=== PATIENT | female | born 1985 | race Hispanic/Latino ===

== ENCOUNTER 2017-08-12 06:02 | Emergency (ER) | payer SELFPAY ==
--- NOTE | 2017-08-12 07:46 | ER ---
Nurse's Notes [facility] Name: Ivana Daniel Age: 31 yrs Sex: Female : 1985 Arrival Date: 08/12/2017 Time: 06:04 Bed 14 Private MD: Diagnosis: Sprain of ankle-Left;Unspecified sprain of left foot Presentation: 08/12 06:19 Presenting complaint: Patient states: "I tripped over something at my apartment last bs1 night around 9pm and my left ankle twisted and It has been hurting me all night.". Transition of care: patient was not received from another setting of care. Onset of symptoms was August 11, 2017 at 21:00. Initial Sepsis Screen: Does the patient meet any 2 criteria? No. Patient's initial sepsis screen is negative. Does the patient have a suspected source of infection? No. Patient's initial sepsis screen is negative. Care prior to arrival: None. 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 - Social history:: Smoking status: Patient uses tobacco products, denies chronic smoking, but will smoke occasionally. Screenin:26 Abuse screen: Denies threats or abuse. Denies injuries from another. Nutritional bs1 screening: No deficits noted. Tuberculosis screening: No symptoms or risk factors identified. Fall Risk None identified. Assessment: 06:23 General: Appears in no apparent distress. uncomfortable, Behavior is calm, cooperative. bs1 Pain: Complains of pain in left ankle. Neuro: Level of Consciousness is awake, alert, obeys commands, Oriented to person, place, time, situation, Appropriate for age. Cardiovascular: Denies chest pain, shortness of breath, Heart tones S1 S2 present Capillary refill < 3 seconds Patient's skin is warm and dry. Respiratory: Airway is patent Trachea midline Respiratory effort is even, unlabored, Respiratory pattern is regular, symmetrical, Breath sounds are clear bilaterally. GI: No deficits noted. No signs and/or symptoms were reported involving the gastrointestinal system. : No deficits noted. No signs and/or symptoms were reported regarding the genitourinary system. EENT: No deficits noted. No signs and/or symptoms were reported regarding the EENT system. Derm: Skin is intact, Skin is pink, warm \\T\\ dry. Derm: Bruising that is dark purple, on left ankle. Musculoskeletal: Circulation, motion, and sensation intact. Capillary refill < 3 seconds, Range of motion: limited in left foot/ankle Swelling present in left foot/ankle Reports pain in left ankle. 07:08 General: Appears in no apparent distress. uncomfortable, Behavior is calm, cooperative, hj appropriate for age. Pain: Complains of pain in left ankle. Neuro: Level of Consciousness is awake, alert, obeys commands, Oriented to person, place, time, situation, Appropriate for age. Cardiovascular: Capillary refill < 3 seconds Patient's skin is warm and dry. Respiratory: Airway is patent Respiratory effort is even, unlabored, Respiratory pattern is regular, symmetrical. GI: No signs and/or symptoms were reported involving the gastrointestinal system. : No signs and/or symptoms were reported regarding the genitourinary system. EENT: No signs and/or symptoms were reported regarding the EENT system. Derm: No signs and/or symptoms reported regarding the dermatologic system. Musculoskeletal: Circulation, motion, and sensation intact. Capillary refill Range of motion: limited in left ankle Swelling Reports pain in L ankle. Vital Signs: 06:22 BP 109 / 80; Pulse 79; Resp 17; Temp 98.2(O); Pulse Ox 97% on R/A; Weight 95.25 kg; bs1 Height 5 ft. 4 in. (162.56 cm); Pain 9/10; 07:58 BP 102 / 65; Pulse 75; Resp 18; Pulse Ox 100% on R/A; hj 06:22 Body Mass Index 36.05 (95.25 kg, 162.56 cm) bs1 Richardson Coma Score: 06:27 Eye Response: spontaneous(4). Verbal Response: oriented(5). Motor Response: obeys bs1 commands(6). Total: 15. Trauma Score (Adult): 06:27 Eye Response: spontaneous(1); Verbal Response: oriented(1); Motor Response: obeys bs1 commands(2); Systolic BP: > 89 mm Hg(4); Respiratory Rate: 10 to 29 per min(4); Hortencia Score: 15; Trauma Score: 12 ED Course: 06:04 Patient arrived in ED. am2 06:19 Destiny Polanco, RN is Primary Nurse. bs1 06:20 Sae Funes PA is PHCP. cp 06:20 Sae Rangel MD is Attending Physician. cp 06:21 Triage completed. bs1 06:27 Arm band placed on placed. bs1 06:28 Patient has correct armband on for positive identification. Bed in low position. Call bs1 light in reach. Side rails up X 1. Pulse ox on. NIBP on. 07:07 X-ray completed. Portable x-ray completed in exam room. Patient tolerated procedure sw well. 07:09 XRAY Ankle LEFT 3 view In Process Unspecified. EDMS 07:09 XRAY Foot LEFT 3 View In Process Unspecified. EDMS 07:57 No provider procedures requiring assistance completed. Patient did not have IV access hj during this emergency room visit. Administered Medications: No medications were administered Outcome: 07:46 Discharge ordered by MD. cp 07:58 Discharged to home ambulatory, with crutches. hj 07:58 Condition: stable 07:58 Discharge instructions given to patient, Instructed on discharge instructions, follow up and referral plans. medication usage, Demonstrated understanding of instructions, follow-up care, medications, Prescriptions given X 1. 07:59 Patient left the ED. hj Signatures: Dispatcher [employer] EDNJ Lor Kuhn Kartik Banerjee RN RN Sae Méndez PA PA cp Moreno, Amanda am2 Destiny Polanco, RN RN bs1
--- NOTE | 2017-08-12 07:46 | EDPHYS ---
Physician Documentation [facility] Name: Ivana Daniel Age: 31 yrs Sex: Female : 1985 Arrival Date: 08/12/2017 Time: 06:04 Bed 14 Private MD: ED Physician Sae Rangel HPI: 08/12 06:30 This 31 yrs old Female presents to ER via Wheelchair with complaints of Fall cp Injury, Foot Injury. 06:30 The patient presents with an injury, pain, that is acute, swelling, tenderness. The cp complaints affect the left lateral ankle and lateral aspect of left foot. Context: The problem was sustained at home, resulted from the patient tripping, fall, the patient can partially bear weight, the patient is able to ambulate. 06:30 Onset: The symptoms/episode began/occurred last night. Associated signs and symptoms: cp Pertinent negatives calf tenderness, numbness, tingling, weakness. 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 - Social history:: Smoking status: Patient uses tobacco products, denies chronic smoking, but will smoke occasionally. ROS: 06:35 Constitutional: Negative for body aches, chills, fever, poor PO intake. cp 06:35 Eyes: Negative for injury, pain, redness, and discharge. cp 06:35 Neck: Negative for pain with movement, pain at rest, stiffness, bony tenderness. 06:35 Cardiovascular: Negative for chest pain. 06:35 Respiratory: Negative for cough, shortness of breath, wheezing. 06:35 Abdomen/GI: Negative for abdominal pain, nausea, vomiting, and diarrhea. 06:35 MS/extremity: Positive for pain, swelling, tenderness, of the lateral aspect of left foot and left lateral ankle, Negative for paresthesias. 06:35 Skin: Negative for cellulitis, rash. 06:35 All other systems are negative. Exam: 06:42 Constitutional: The patient appears in no acute distress, alert, awake, non-toxic, well cp developed, well nourished. 06:42 Head/Face: Normocephalic, atraumatic. cp 06:42 Eyes: Periorbital structures: appear normal, Conjunctiva: normal, no exudate, no injection, Lids and lashes: appear normal, bilaterally. 06:42 ENT: External ear(s): are unremarkable, Nose: is normal, Mouth: is normal, Posterior pharynx: is normal, airway is patent. 06:42 Neck: ROM/movement: is normal, is supple, without pain, no range of motions limitations, no nuchal rigidity. 06:42 Chest/axilla: Inspection: normal. 06:42 Cardiovascular: Rate: normal. 06:42 Respiratory: the patient does not display signs of respiratory distress, Respirations: normal, no use of accessory muscles, no retractions, no splinting, no tachypnea. 06:42 Abdomen/GI: Exam negative for discomfort, distension, guarding, Inspection: abdomen appears normal. 06:42 Back: pain, is absent, ROM is normal. 06:42 Musculoskeletal/extremity: Extremities: grossly normal except: noted in the lateral aspect of left foot and left lateral ankle: pain, swelling, tenderness, There is no evidence of deformity, Perfusion: the extremity is normally perfused throughout, Sensation intact. Achilles tendon palpated and intact and no pain palpated at proximal fibula. 06:42 Skin: cellulitis, is not appreciated, no rash present. Vital Signs: 06:22 BP 109 / 80; Pulse 79; Resp 17; Temp 98.2(O); Pulse Ox 97% on R/A; Weight 95.25 kg; bs1 Height 5 ft. 4 in. (162.56 cm); Pain 9/10; 07:58 BP 102 / 65; Pulse 75; Resp 18; Pulse Ox 100% on R/A; hj 06:22 Body Mass Index 36.05 (95.25 kg, 162.56 cm) bs1 Hortencia Coma Score: 06:27 Eye Response: spontaneous(4). Verbal Response: oriented(5). Motor Response: obeys bs1 commands(6). Total: 15. Trauma Score (Adult): 06:27 Eye Response: spontaneous(1); Verbal Response: oriented(1); Motor Response: obeys bs1 commands(2); Systolic BP: > 89 mm Hg(4); Respiratory Rate: 10 to 29 per min(4); Fowler Score: 15; Trauma Score: 12 Procedures: 07:55 Splinting: Splint applied to left ankle using Air Cast, applied by nurse. Examined by cp me, post splint application: neurovascular intact, Patient tolerated well. 07:55 Crutch training provided to patient and/or family. Return demonstration given. cp MDM: 06:20 Patient medically screened. cp 07:00 Differential diagnosis: dislocation, closed fracture, sprain. Counseling: I had a cp detailed discussion with the patient and/or guardian regarding: the historical points, exam findings, and any diagnostic results supporting the discharge/admit diagnosis, radiology results, to return to the emergency department if symptoms worsen or persist or if there are any questions or concerns that arise at home. Response to treatment: the patient's symptoms have mildly improved after treatment, and as a result, I will discharge patient. 07:45 Data reviewed: vital signs, nurses notes, radiologic studies, plain films, and as a cp result, I will discharge patient. 07:45 Test interpretation: by ED physician or midlevel provider: plain radiologic studies. 08/12 06:24 Order name: XRAY Ankle LEFT 3 view cp 08/12 06:24 Order name: XRAY Foot LEFT 3 View cp 08/12 07:43 Order name: Crutches; Complete Time: 07:57 cp 08/12 07:43 Order name: Aircast Ankle Splint; Complete Time: 07:57 cp Administered Medications: No medications were administered Disposition: 08/13 06:54 Co-signature as Attending Physician, Sae Rangel MD I agree with the assessment and austen plan of care. Disposition: 08/12/17 07:46 Discharged to Home. Impression: Sprain of ankle - Left, Unspecified sprain of left foot. - Condition is Stable. - Discharge Instructions: Ankle Sprain, Foot Sprain. - Prescriptions for Ibuprofen 800 mg Oral Tablet - take 1 tablet by ORAL route every 8 hours As needed take with food; 30 tablet. - Work release form, Medication Reconciliation Form, Thank You Letter, Antibiotic Education, Prescription Opioid Use form. - Follow up: Private Physician; When: 5 - 6 days; Reason: Recheck today's complaints. - Problem is new. - Symptoms have improved. Signatures: Dispatcher [employer] Sae Wing MD MD cha Joaquin, Henry RN RN hj Sae Funes PA PA cp Destiny Polanco RN RN bs1 Corrections: (The following items were deleted from the chart) 08/12 07:59 07:46 08/12/2017 07:46 Discharged to Home. Impression: Sprain of ankle - Left; hj Unspecified sprain of left foot. Condition is Stable. Forms are Medication Reconciliation Form, Thank You Letter, Antibiotic Education, Prescription Opioid Use. Follow up: Private Physician; When: 5 - 6 days; Reason: Recheck today's complaints. Problem is new. Symptoms have improved. cp
[2017-08-12 08:04] VITALS: TEMP 98.2
[2017-08-12 08:05] VITALS: BP 102/65; O2SAT 100
--- NOTE | 2017-08-12 09:14 | RAD REPORT ---
EXAM DESCRIPTION: RAD - Ankle Left 3 View - 08/12/2017 7:13 am CLINICAL HISTORY: Trauma left ankle and foot pain COMPARISON: None. FINDINGS: Left ankle and left foot, multiple projections. No acute fracture or dislocation is seen. Mild soft tissue swelling is evident.
--- NOTE | 2017-08-12 09:47 | RAD REPORT ---
EXAM DESCRIPTION: RAD - Foot Left 3 View - 08/12/2017 7:10 am CLINICAL HISTORY: Trauma left ankle and foot pain COMPARISON: None. FINDINGS: Left ankle and left foot, multiple projections. No acute fracture or dislocation is seen. Mild soft tissue swelling is evident.
== END 2017-08-12 07:59 | disposition home or self-care (01) ==
LOC: ER 06:02
DX: S93.402A Sprain of unspecified ligament of left ankle, initial encounter (principal); S93.602A Unspecified sprain of left foot, initial encounter; W01.0XXA Fall on same level from slipping, tripping and stumbling without subsequent striking against object, initial encounter; Y93.9 Activity, unspecified; Y92.009 Unspecified place in unspecified non-institutional (private) residence as the place of occurrence of the external cause; Z72.0 Tobacco use
CPT/HCPCS: 99283

== ENCOUNTER 2019-07-24 09:57 | Emergency (ER) | payer OTHER, SELFPAY ==
[2019-07-24 11:04] LABS: Urine Blood TRACE (NEG); Urine Glucose NEGATIVE (NEG); Urine Protein TRACE (NEG); Urine pH 6.5 (5.0-7.0)
[2019-07-24 11:40] LABS: Absolute Lymphocytes (CBC) 0.6 K/uL (0.7-4.9); Basophils % 0.3 % (0-1.3); Hematocrit 32.5 % (36.0-45.0); Lymphocytes % 19.8 % (15.3-44.8); MPV 8.5 fL (7.6-11.3); RBC Red Blood Cell Count 4.13 M/uL (3.86-4.86)
[2019-07-24] MEDS ORDERED: NA CHLORIDE 0.9% 1,000 ML ONE (11:49)
[2019-07-24 12:02] LABS: Blood Morphology Comment NOT SEEN (NOT SEEN); Platelet Estimate ADEQ; Urine White Blood Cell Casts OK
[2019-07-24 12:15] LABS: BUN Blood Urea Nitrogen 7 mg/dL (7-18); Bicarbonate 24 mmol/L (21-32); Glucose Level 96 mg/dL (74-106); HCG, Quantitative 57377 mIU/mL (1-3); Potassium 3.5 mmol/L (3.5-5.1); Sodium Level 139 mmol/L (136-145)
--- NOTE | 2019-07-24 13:29 | RAD REPORT ---
EXAM DESCRIPTION: US - Transvaginal OB - 07/24/2019 12:43 pm CLINICAL HISTORY: ABD CRAMPING, COMPARISON: OBSTETRICAL COMPLETE dated 04/16/2012 FINDINGS: A single gestational sac is seen within the uterus. The shape of the sac is within normal limits for gestational age. Within the sac is a single pole with crown-rump length of 2.5 cm, c orrelating to estimated gestational age of 9 weeks 0 days. Estimated date of delivery is 02/26/2020. Heart rate is 165 BPM. The placenta is not yet developed due to early gestational age. The maternal adnexa and ovaries are within normal limits. Normal Doppler blood flow was demonstrated to both ovaries. IMPRESSION: Single live early intrauterine gestation with estimated gestational age of 9 weeks 0 day s gestational age, MAREK 02/26/2020. No unusual or unexpected finding.
--- NOTE | 2019-07-24 13:41 | ER ---
Nurse's Notes [facility] Name: Ivana Daniel Age: 33 yrs Sex: Female : 1985 Arrival Date: 07/24/2019 Time: 10:00 Bed 18 Private MD: Diagnosis: state;Upper abdominal pain, unspecified Presentation: 07/23 10:19 Chief complaint: Patient states: LLQ pain that began yesterday afternoon. Pt also aa5 reports positive test approximately 3 weeks ago and reports nausea and vomiting on and off since then. Pt denies vaginal bleeding. Pt also reports fever up to 100.0 F and congestion. Coronavirus screen: Surgical mask placed on patient. Patient moved to private room, placed in contact and droplet isolation with eye protection until further assessment. Patient denies a cough. Patient reports shortness of breath or difficulty breathing. Patient reports a measured and/or subjective temperature greater than 100.4F. Patient denies travel on a cruise ship or to a country the [facility] currently lists as an affected area. Patient denies contact with known and/or suspected case of COVID-19. Ebola Screen: Patient negative for fever greater than or equal to 101.5 degrees Fahrenheit, and additional compatible Ebola Virus Disease symptoms. Risk Assessment: Do you want to hurt yourself or someone else? Patient reports no desire to harm self or others. Onset of symptoms was July 2019. 10:19 Method Of Arrival: Ambulatory aa5 10:19 Acuity: SREEKANTH 3 aa5 10:27 Initial Sepsis Screen: Does the patient meet any 2 criteria? No. Patient's initial aa5 sepsis screen is negative. Does the patient have a suspected source of infection? No. Patient's initial sepsis screen is negative. 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 - Social history:: Smoking status: Patient denies any tobacco usage or history of. Screenin:48 Abuse screen: Denies threats or abuse. Nutritional screening: No deficits noted. rb1 Tuberculosis screening: No symptoms or risk factors identified. Fall Risk None identified. Assessment: 11:48 General: Appears in no apparent distress. comfortable, Behavior is calm, cooperative, rb1 Reports fever for. Pain: Complains of pain in left upper quadrant and left lower quadrant Pain currently is 6 out of 10 on a pain scale. Neuro: Level of Consciousness is awake, alert, obeys commands, Oriented to person, place, time, situation. Cardiovascular: Capillary refill < 3 seconds is brisk in bilateral fingers. Respiratory: Airway is patent Respiratory effort is even, unlabored, Respiratory pattern is regular, symmetrical. GI: Reports nausea, vomiting, since she got . : No signs and/or symptoms were reported regarding the genitourinary system. Derm: Skin is pink, warm \T\ dry. 12:34 Reassessment: Patient appears in no apparent distress at this time. No changes from rb1 previously documented assessment. 13:30 Reassessment: Patient appears in no apparent distress at this time. Patient and/or rb1 family updated on plan of care and expected duration. Pain level reassessed. Patient is alert, oriented x 3, equal unlabored respirations, skin warm/dry/pink. 13:59 Reassessment: [facility] # [id number]. aa5 Vital Signs: 10:25 BP 102 / 64; Pulse 90; Resp 16 S; Temp 98.3(O); Pulse Ox 98% on R/A; aa5 11:48 BP 103 / 59; Pulse 83; Resp 17; Pulse Ox 98% on R/A; Pain 6/10; rb1 12:25 BP 107 / 50; Pulse 79; Resp 17; Pulse Ox 99% ; Pain 6/10; rb1 13:25 BP 102 / 53; Pulse 81; Resp 16; Pulse Ox 100% on R/A; rb1 ED Course: 10:00 Patient arrived in ED. ag5 10:02 Deann Zavala FNP-C [facility]. snw 10:02 Tim Torres MD is Attending Physician. snw 10:04 Arm band placed on Patient placed in an exam room, on a stretcher. aa5 10:21 Triage completed. aa5 11:18 Flu and/or RSV swab sent to lab. Strep swab sent to lab. COVID-19 swab sent to lab. aa5 11:20 Initial lab(s) drawn, by me, sent to lab. Inserted saline lock: 20 gauge in right aa5 antecubital area, using aseptic technique. Blood collected. 11:48 Patient has correct armband on for positive identification. Bed in low position. Call rb1 light in reach. Side rails up X 1. Pulse ox on. NIBP on. 12:10 Josseline Murillo, RN is Primary Nurse. rb1 12:34 Ultrasound completed. Patient tolerated well. sg3 12:35 US Transvaginal Ob In Process Unspecified. EDMS 13:17 Repeat lab(s) drawn. by me, sent to lab. jp3 14:02 No provider procedures requiring assistance completed. IV discontinued, intact, rb1 bleeding controlled, No redness/swelling at site. Pressure dressing applied. Administered Medications: 11:45 Drug: NS 0.9% 1000 ml Route: IV; Rate: 125 ml/hr; Site: right antecubital; rb1 Outcome: 13:41 Discharge ordered by MD. snw 14:02 Patient left the ED. rb1 14:02 Discharged to home ambulatory. rb1 14:02 Condition: stable 14:02 Discharge instructions given to patient, Instructed on discharge instructions, follow up and referral plans. medication usage, Demonstrated understanding of instructions, follow-up care, medications, Prescriptions given X 1. Addendum: 07/26/2019 18:35 Addendum: Other Attempted to call pt regarding negative COVID swab results, no answer, h b no voicemail set up. Signatures: Dispatcher [employer] EDAL Deann Zavala, CHA[employer]MAN [employer]-C [employer]MAN [employer] Patricia Unger RN RN aa5 Josseline Murillo, JENNIFER RODRIGUEZ [facility] Monique Rg RN RN Yessy Lee sg3 Dontae Coates jp3 Blaire Phillips ag5
--- NOTE | 2019-07-24 13:41 | EDPHYS ---
Physician Documentation [facility] Name: Ivana Daniel Age: 33 yrs Sex: Female : 1985 Arrival Date: 07/24/2019 Time: 10:00 Bed 18 Private MD: ED Physician Tim Torres HPI: 07/23 10:33 This 33 yrs old Female presents to ER via Ambulatory with complaints of snw Abdominal Pain. 10:33 The patient presents with abdominal pain in the left lower quadrant. Onset: The snw symptoms/episode began/occurred gradually, 3 day(s) ago, and became persistent. The symptoms do not radiate. Associated signs and symptoms: Pertinent positives: nausea and vomiting, fever, , body aches, chills. Severity of pain: At its worst the pain was mild. The patient has not experienced similar symptoms in the past. The patient has not recently seen a physician. initial appt with OB this coming week. . Pt states LMP in May.. 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 - Social history:: Smoking status: Patient denies any tobacco usage or history of. ROS: 10:33 Eyes: Negative for injury, pain, redness, and discharge, ENT: Negative for injury, snw pain, and discharge, Neck: Negative for injury, pain, and swelling, Cardiovascular: Negative for chest pain, palpitations, and edema, Respiratory: Negative for shortness of breath, cough, wheezing, and pleuritic chest pain. 10:33 Back: Negative for injury and pain, : Negative for injury, bleeding, discharge, and swelling, MS/Extremity: Negative for injury and deformity, Skin: Negative for injury, rash, and discoloration, Neuro: Negative for headache, weakness, numbness, tingling, and seizure, Psych: Negative for depression, anxiety, suicide ideation, homicidal ideation, and hallucinations. 10:33 Constitutional: Positive for body aches, chills, fever, poor PO intake. 10:33 Abdomen/GI: Positive for abdominal pain, nausea and vomiting. Exam: 10:33 Constitutional: This is a well developed, well nourished patient who is awake, alert, snw and in no acute distress. Head/Face: Normocephalic, atraumatic. Eyes: Pupils equal round and reactive to light, extra-ocular motions intact. Lids and lashes normal. Conjunctiva and sclera are non-icteric and not injected. Cornea within normal limits. Periorbital areas with no swelling, redness, or edema. ENT: Nares patent. No nasal discharge, no septal abnormalities noted. Tympanic membranes are normal and external auditory canals are clear. Oropharynx with no redness, swelling, or masses, exudates, or evidence of obstruction, uvula midline. Mucous membranes moist. Neck: Trachea midline, no thyromegaly or masses palpated, and no cervical lymphadenopathy. Supple, full range of motion without nuchal rigidity, or vertebral point tenderness. No Meningismus. Chest/axilla: Normal chest wall appearance and motion. Nontender with no deformity. No lesions are appreciated. Cardiovascular: Regular rate and rhythm with a normal S1 and S2. No gallops, murmurs, or rubs. Normal PMI, no JVD. No pulse deficits. 10:33 Back: No spinal tenderness. No costovertebral tenderness. Full range of motion. Skin: Warm, dry with normal turgor. Normal color with no rashes, no lesions, and no evidence of cellulitis. MS/ Extremity: Pulses equal, no cyanosis. Neurovascular intact. Full, normal range of motion. Neuro: Awake and alert, GCS 15, oriented to person, place, time, and situation. Cranial nerves II-XII grossly intact. Motor strength 5/5 in all extremities. Sensory grossly intact. Cerebellar exam normal. Normal gait. Psych: Awake, alert, with orientation to person, place and time. Behavior, mood, and affect are within normal limits. 10:33 Respiratory: the patient does not display signs of respiratory distress, Respirations: labored breathing, that is mild, Breath sounds: are clear throughout. 10:33 Abdomen/GI: Inspection: obese Bowel sounds: normal, Palpation: abdomen is soft and non-tender, in all quadrants. Vital Signs: 10:25 BP 102 / 64; Pulse 90; Resp 16 S; Temp 98.3(O); Pulse Ox 98% on R/A; aa5 11:48 BP 103 / 59; Pulse 83; Resp 17; Pulse Ox 98% on R/A; Pain 6/10; rb1 12:25 BP 107 / 50; Pulse 79; Resp 17; Pulse Ox 99% ; Pain 6/10; rb1 13:25 BP 102 / 53; Pulse 81; Resp 16; Pulse Ox 100% on R/A; rb1 MDM: 10:19 Patient medically screened. snw 13:42 Data reviewed: vital signs, nurses notes. Data interpreted: Pulse oximetry: on room air snw is 99 %. Interpretation: normal. Counseling: I had a detailed discussion with the patient and/or guardian regarding: the historical points, exam findings, and any diagnostic results supporting the discharge/admit diagnosis, lab results, radiology results, the need for outpatient follow up, to return to the emergency department if symptoms worsen or persist or if there are any questions or concerns that arise at home. Special discussion: Based on the history and exam findings, there is no indication for further emergent testing or inpatient evaluation. I discussed with the patient/guardian the need to see the OB Gyne specialist for further evaluation of the symptoms. I discussed with the patient/guardian the need to see the primary care provider for further evaluation of the symptoms. 07/23 10:17 Order name: Quantitative Hcg; Complete Time: 12:40 snw 07/23 10:17 Order name: Abo/rh Typing; Complete Time: 13:26 snw 07/23 10:17 Order name: Basic Metabolic Panel; Complete Time: 12:40 snw 07/23 10:17 Order name: CBC with Diff; Complete Time: 12:40 snw 07/23 10:19 Order name: COVID-19 snw 07/23 10:19 Order name: Flu; Complete Time: 12:40 snw 07/23 10:17 Order name: Urine Test (obtain specimen); Complete Time: 10:36 snw 07/23 10:19 Order name: Strep; Complete Time: 12:40 snw 07/23 10:23 Order name: Urine Dipstick--Ancillary (enter results); Complete Time: 11:45 eb 07/23 10:23 Order name: Urine --Ancillary (enter results); Complete Time: 11:45 eb 07/23 10:40 Order name: US Transvaginal Ob; Complete Time: 13:39 snw 07/23 11:59 Order name: Throat Culture EDWY 07/23 12:02 Order name: CBC Smear Scan; Complete Time: 12:40 EDWY 07/23 10:17 Order name: IV Saline Lock; Complete Time: 11:28 snw 07/23 10:17 Order name: Labs collected and sent; Complete Time: 11:28 snw 07/23 10:17 Order name: NPO; Complete Time: 11:28 snw 07/23 10:17 Order name: Urine Dipstick-Ancillary (obtain specimen); Complete Time: 10:36 snw 07/23 10:19 Order name: Document PUI#; Complete Time: 11:28 snw 07/23 10:19 Order name: Droplet/Contact Precautions; Complete Time: 11:28 snw 07/23 10:19 Order name: Labs collected and sent; Complete Time: 11:28 snw 07/23 10:19 Order name: Notify Health Dept [phone]/ ; Complete Time: 11:28 snw 07/23 10:19 Order name: O2 Per Protocol; Complete Time: 11:28 snw Administered Medications: 11:45 Drug: NS 0.9% 1000 ml Route: IV; Rate: 125 ml/hr; Site: right antecubital; rb1 Disposition: 14:15 Co-signature as Attending Physician, Tim Torres MD. rn Disposition: 07/24/19 13:41 Discharged to Home. Impression: state, Upper abdominal pain, unspecified. - Condition is Stable. - Discharge Instructions: Abdominal Pain During , Iron Deficiency Anemia, Adult. - Prescriptions for Vitamin 27- 0.8 mg Oral Tablet - take 1 tablet by ORAL route once daily; 60 tablet. - Medication Reconciliation Form, Thank You Letter, Antibiotic Education, Prescription Opioid Use, Work release form form. - Follow up: Emergency Department; When: As needed; Reason: Worsening of condition. Follow up: Private Physician; When: 2 - 3 days; Reason: If symptoms return, Recheck today's complaints, Continuance of care. Signatures: Dispatcher [employer] [facility] Deann Zavala, COURSEWARE DEVELOPER-C COURSEWARE DEVELOPER-Csnw Tim Torres MD MD rn Calderon, Audri, RN RN aa5 Josseline Murillo, RN RN rb1 Corrections: (The following items were deleted from the chart) 14:02 13:41 07/24/2019 13:41 Discharged to Home. Impression: state; Upper abdominal rb1 pain, unspecified. Condition is Stable. Forms are Medication Reconciliation Form, Thank You Letter, Antibiotic Education, Prescription Opioid Use. Follow up: Emergency Department; When: As needed; Reason: Worsening of condition. Follow up: Private Physician; When: 2 - 3 days; Reason: If symptoms return, Recheck today's complaints, Continuance of care. snw
[2019-07-24 14:28] VITALS: TEMP 98.3
[2019-07-24 14:31] VITALS: BP 107/50; O2SAT 99
== END 2019-07-24 14:02 | disposition home or self-care (01) ==
LOC: ER 09:57
DX: O26.891 Other specified pregnancy related conditions, first trimester (principal); Z3A.09 9 weeks gestation of pregnancy; Z03.818 Encounter for observation for suspected exposure to other biological agents ruled out
CPT/HCPCS: 87070; 85025; 80048; 36415; 86900; 81025; 86901; 87081; 84702; 81003; 87804 ×2; 76817; 99284; U0001; J7030

== ENCOUNTER 2021-11-28 06:39 | Emergency (ER) | payer OTHER ==
--- OUTSIDE RECORDS SUMMARY | 2021-11-28 06:44 | XMS REPORT | Continuity of Care Document ---
:1985 Author Organization [facility] t Address [address] [place] [address] Care Team Providers Name Role Phone Devora Jara Primary Care Physician [phone] Kristin Yeboah Attending Clinician EbraAren Rao Attending Clinician AREN HARPER Attending Clinician Unavailable Amber Luevano RN Attending Clinician Unavailable KRISTIN VALLADARES Attending Clinician Unavailable Doctor Unassigned, [place] Attending Clinician Unavailable HORACE MORALES Attending Clinician Unavailable Only, Adc Pob2 Test Attending Clinician Unavailable Horace Morales DO Attending Clinician Nahomy Braun RN Attending Clinician Unavailable Only, Ang Db Test Attending Clinician Unavailable UNKNOWN, ATTENDING Attending Clinician Unavailable Ivana Ahumada Attending Clinician Provider, [facility] Attending Clinician Unavailable IVANA GARRIDO Attending Clinician Unavailable DEVORA PERRY Attending Clinician Unavailable Devora Jara Attending Clinician [phone] Eula Johnson MD, [place] Attending Clinician [phone], [facility] Room Attending Clinician Unavailable Romain Barnhart MD Attending Clinician BARRON GUILLEN Attending Clinician Unavailable 1, [facility] Room Attending Clinician Unavailable Andrew RODRIGES, Lor Gomez Attending Clinician ARIANA MAYER [facility] Attending Clinician Unavailable Eula Johnson MD, [place] Admitting Clinician [phone] Payers Payer Name Policy Type Policy Number Effective Date Expiration Date Jos bailey [facility] [id number] 2019 CHOICE MEDICAID 00:00:00 Problems Condition Condition Condition Status Onset Resolution Last Treating Co mments Source Name Details Category Date Date Treatment Clinician Date Other Other Disease Active Univers general general 1-27 [place] of counseling [place] and advice and advice 00 Me dical for for Branch contracept contracept alan alan management management Routine Routine Disease Active 2019-04 Univers 2-07 [place] [facility] Anemia, Anemia, Disease Active 2019-04 Univers 1-16 it y of 00:00: [place] 00 [facility] First First Disease Active 2019-04 Univers degree degree 1-15 ity of laceration laceration 00:00[place] of of 00 Medical perineum perineum Branch during during delivery, delivery, Disease Active 2019-04 Univers (normal (normal 1-15 ity of spontaneou spontaneou 00:00[place] s vaginal s vaginal 00 [facility] delivery) delivery) Bran ch Single Single Disease Active 2019-04 Univers live live 1-15 ity of 00:00: [place] 00 [facility] Obesity Obesity Disease Active 2019-04 Univers (BMI (BMI 1-15 ity of 30-39.9) 30-39.9) 00:00: [place] 00 [facility] Branch 39 weeks 39 weeks Disease Active 2019-04 Unive rs gestation gestation 1-14 ity of of of 00:00: [place] 00 [facility] Indication Indication Disease Active 2019-04 U nivers for care for care 1-14 ity of or or 00:00: [place] interventi interventi 00 Me dical on in on in Branch labor or labor or delivery-I delivery-I OL OL Pyelectasi Pyelectasi Disease Active Overview : Univers s s 12-09 Not ity of 00:00: mentioned [place] 00 on f/u Medical USG Branch Rubella Rubella Disease Active Univers non-immune non-immune 12-05 it y of status, status, 00:00: [place] antepartum antepartum 00 Me dical Branch Anemia of Anemia of Disease Active Uni vers mother in mother in 12-05 ity of , , [place] antepartum antepartum 00 Me dical Branch Tobacco Tobacco Disease Active Overview: Univ ers use in use in 12-02 Formattin ity of 00:00: g of this [place] 00 note Medical might be Branch different from the original. Reports quit Supervisio Supervisio Disease Active Overview : Univers n of n of 12-02 See ity of high-risk high-risk 00:00: scanned [place] as 00 records Med ical with with Branch insufficie insufficie nt nt care care AMA AMA Disease Active Univers (advanced (advanced 12-02 ity of maternal maternal 00:00: [place] age) age) 00 Medical multigravi multigravi Br anch da 35+ da 35+ Multiparit Multiparit Disease Active 2019- U nivers y y 12-02 ity of 00:00: [place] 00 Medical Branch Obesity in Obesity in Disease Active 2019-0 U nivers 12-02 ity of 00:00: [place] 00 Medical Branch Right Right Disease Active 2014-04 Univers ureteral ureteral 1-24 ity of stone stone 00:00: [place] 00 Medical Branch Chlamydia Chlamydia Disease Active Uni vers trachomati trachomati 4-17 it y of s s 00:00: [place] infection infection 00 Medi jason of lower of lower Branch genitourin genitourin daniel sites daniel sites Allergies, Adverse Reactions, Alerts Allergy Allergy Status Severity Reaction(s) Onset Inactive Treating Comm ents Source Name Type Date Date Clinician NO KNOWN Drug Active Univers ALLERGIE Class ity of S [place] [facility] [place] Social History Social Habit Start Date Stop Date Quantity Comments Source ASSERTION 2019-05-31 University of 00:00:00 [place] [facility] History SDOH University o f Alcohol [place] [facility] Frequency Branch History SDOH University o f Alcohol Std [place] [facility] Drinks Branch History [facility] University o f Alcohol Binge [place] Medic al Branch Exposure to 2021-09-11 2021-09-21 Not sure [facility] SARS-CoV-2 00:00:00 [facility]:29:[facility] [place] Alcohol intake 2021-09-21 2021-09-21 Current drinker of Un iversity of 00:00:00 00:00:00 alcohol (finding) [facility] Tobacco use and 2019-12-03 2019-12-03 Never used Universit y of exposure 00:00:00 00:00:00 [facility] History of 2019-03-07 Cigarette [facility] tobacco use 00:00:00 [facility] Alcohol Comment 2013-07-21 2013-07-21 Occasionally Univers ity of 00:00:00 00:00:00 [facility] Tobacco Comment 2013-07-21 2013-07-21 Pt reports smoking 1 University of 00:00:00 00:00:00 x per month [facility] Sex [birth year] At [birth year] Universit y of 00:00:00 00:00:00 [facility] Smoking Status Start Date Stop Date Source Former smoker 2019-12-03 00:00:00 2019-12-03 00:00:00 Universi ty of [facility] Current some day 2015-03-01 00:00:00 [facility] smoker [facility] Medications Ordered Filled Start Stop Current Ordering Indication Dosage Frequency Signature Comments Components Source Medication Medication Date Date Medication? Clinician (SIG) Name Name methylPREDN Yes [id number] Take by Univers ISolone 09-21 mouth ity of (MEDROL, 00:00: SEE-INSTRU [place] as DOT,) 4 mg 00 CTIONS. Medica l tablets follow Branch package directions ketoconazol Yes [id number] Apply to Univers e 2 % cream 09-21 area(s) 2 ity of 00:00: (two) [place] 00 times Medical daily. Branch codeine-gua 2021- Yes [id number] 5mL Take 5 mL Univers ifenesin 09-21 by mouth ity of 10-100 mg/5 00:00: 04:59 every 6 [place] mL oral 00 :00 (six) Medical solution hours as Branch needed for Cough for up to 7 days. Indication s: acute pain codeine-gua 2021- Yes [id number] 5mL Take 5 mL Univers ifenesin 09-1216 by mouth ity of 10-100 mg/5 00:00: 04:59 every 6 [place] mL oral 00 :00 (six) Medical solution hours as Branch needed for Cough for up to 7 days. Indication s: acute pain codeine-gua 2021- Yes [id number] 5mL Take 5 mL Univers ifenesin 608 -16 by mouth ity of 10-100 mg/5 00:00: 04:59 every 6 [place] mL oral 00 :00 (six) Medical solution hours as Branch needed for Cough for up to 7 days. Indication s: acute pain naproxen 2020- No [id number] 500mg Take 1 Univers 500 mg 09-19 tablet by ity of tablet 00:00: 04:59 mouth 2 [place] 00 :00 (two) Medical times Branch daily as needed for Pain (scale 4-6) for up to 30 days. methylPREDN 2020- No [id number] Take by Univers ISolone 4 09-19 mouth ity of mg tablets 00:00: 04:59 SEE-INSTRU [place] 00 :00 CTIONS for Medical 6 days. Branch follow package directions levonorgest 2020- No [id number] 1{devi Univers reL 05-03 e} ity of (LILETTA) 19:15: 18:01 [place] IUD 1 00 :00 Partner Manager Branch levonorgest 2020- No [id number] 1{devic 1 Device, Univers reL 05-03 e} Intrauteri ity of (LILLUGOFF) 19:15: 18:01 ne, ONCE, [place] IUD 1 00 :00 1 dose, Partner Manager Wed Branch 05/03/20 at 1315, Routine levonorgest 2020- No [id number] 1{devi Univers reL 05-03 e} ity of (LILETTA) 19:15: 18:01 [place] IUD 1 00 :00 Partner Manager Branch levonorgest 2020- No [id number] 1{devic 1 Device, Univers reL 05-03 e} Intrauteri ity of (LILLUGOFF) 19:15: 18:01 ne, ONCE, [place] IUD 1 00 :00 1 dose, Partner Manager Wed Branch 05/03/20 at 1315, Routine ibuprofen 2019-04 Yes [id number] 600mg Take 1 U nivers 600 mg 1-16 tablet by ity of tablet 00:00: mouth [place] 00 every 6 Medical (six) Branch hours as needed (Pain). Take with food or milk. ibuprofen 2019-04 Yes [id number] 600mg Take 1 U nivers 600 mg 1-16 tablet by ity of tablet 00:00: mouth [place] 00 every 6 Medical (six) Branch hours as needed (Pain). Take with food or milk. ibuprofen 2019-04 Yes [id number] 600mg Take 1 U nivers 600 mg 1-16 tablet by ity of tablet 00:00: mouth [place] 00 every 6 Medical (six) Branch hours as needed (Pain). Take with food or milk. ibuprofen 2019-04 Yes [id number] 600mg Take 1 U nivers 600 mg 1-16 tablet by ity of tablet 00:00: mouth [place] 00 every 6 Medical (six) Branch hours as needed (Pain). Take with food or milk. ibuprofen 2019-04 Yes [id number] 600mg Take 1 U nivers 600 mg 1-16 tablet by ity of tablet 00:00: mouth [place] 00 every 6 Medical (six) Branch hours as needed (Pain). Take with food or milk. ibuprofen 2019-04 Yes [id number] 600mg Take 1 U nivers 600 mg 1-16 tablet by ity of tablet 00:00: mouth [place] 00 every 6 Medical (six) Branch hours as needed (Pain). Take with food or milk. ibuprofen 2019-04 Yes [id number] 600mg Take 1 U nivers 600 mg 1-16 tablet by ity of tablet 00:00: mouth [place] 00 every 6 Medical (six) Branch hours as needed (Pain). Take with food or milk. ibuprofen 2019-04 Yes [id number] 600mg Take 1 U nivers 600 mg 1-16 tablet by ity of tablet 00:00: mouth [place] 00 every 6 Medical (six) Branch hours as needed (Pain). Take with food or milk. ibuprofen 2019-04 Yes [id number] 600mg Take 1 U nivers 600 mg 1-16 tablet by ity of tablet 00:00: mouth [place] 00 every 6 Medical (six) Branch hours as needed (Pain). Take with food or milk. ibuprofen 2019-04 Yes [id number] 600mg Take 1 U nivers 600 mg 1-16 tablet by ity of tablet 00:00: mouth [place] 00 every 6 Medical (six) Branch hours as needed (Pain). Take with food or milk. ibuprofen 2019-04 Yes [id number] 600mg Take 1 U nivers 600 mg 1-16 tablet by ity of tablet 00:00: mouth [place] 00 every 6 Medical (six) Branch hours as needed (Pain). Take with food or milk. ibuprofen 2019-04 Yes [id number] 600mg Take 1 U nivers 600 mg 1-16 tablet by ity of tablet 00:00: mouth [place] 00 every 6 Medical (six) Branch hours as needed (Pain). Take with food or milk. ibuprofen 2019-04 Yes [id number] 600mg Take 1 U nivers 600 mg 1-16 tablet by ity of tablet 00:00: mouth [place] 00 every 6 Medical (six) Branch hours as needed (Pain). Take with food or milk. ibuprofen 2019-04 Yes [id number] 600mg Take 1 U nivers 600 mg 1-16 tablet by ity of tablet 00:00: mouth [place] 00 every 6 Medical (six) Branch hours as needed (Pain). Take with food or milk. ibuprofen 2019-04 Yes [id number] 600mg Take 1 U nivers 600 mg 1-16 tablet by ity of tablet 00:00: mouth [place] 00 every 6 Medical (six) Branch hours as needed (Pain). Take with food or milk. ibuprofen 2019-04 Yes [id number] 600mg Take 1 U nivers 600 mg 1-16 tablet by ity of tablet 00:00: mouth [place] 00 every 6 Medical (six) Branch hours as needed (Pain). Take with food or milk. ibuprofen 2019-04 Yes [id number] 600mg Take 1 U nivers 600 mg 1-16 tablet by ity of tablet 00:00: mouth [place] 00 every 6 Medical (six) Branch hours as needed (Pain). Take with food or milk. rho(D) 2019-04 Yes 300ug 300 mcg, Univer s immune 1-15 Intramuscu ity of globulin 11:09: lar, ONCE, [place] as (RHOGAM) 23 For 1 Medical syringe 300 dose, Branch mcg Conditiona l, Routine simethicone 2019-04 Yes 160mg 160 mg, Un deepak (GAS RELIEF 1-15 Oral, ity of (SIMETHICON 11:09: PC+HSPRN, [place] E)) 21 Starting Medical chewable [place] Branch tablet 160 02/20/20 mg at 0509, Until Discontinu ed, Routine, Gas ibuprofen 2019-04 Yes 600mg 600 mg, Univ ers (IBU) 1-15 Oral, ity of tablet 600 11:09: Q6HPRN, [place] mg 20 Starting Medical [place] Branch 02/20/20 at 0509, Until Discontinu ed, Routine, Pain (scale 4-6) acetaminoph 2019-04 Yes 650mg 650 mg, Un deepak en 1-15 Oral, ity of (TYLENOL) 11:09: Q6HPRN, [place] tablet 650 20 Starting Medic al mg Sun Branch 02/20/20 at 0509, Until Discontinu ed, Routine, Pain (scale 1-3) diphenhydrA 2019-04 Yes 25mg 25 mg, Univ ers MINE 1-15 Oral, ity of (BENADRYL) 11:09: Q6HPRN, [place] tablet 25 20 Starting Medica l mg [place] Branch 02/20/20 at 0509, Until Discontinu ed, Routine, Sleep, Itching diphenhydrA 2019-04 Yes 25mg 25 mg, IV U nivers MINE-0.9 % 1-15 Piggyback, ity of sod.chlr 11:09: Administer [place] (BENADRYL) 20 over 30 Medica l 25 mg/50 mL Minutes, Bran ch piggyback Q6HPRN, 25 mg Starting 02/20/20 at 0509, Until Discontinu ed, Routine, Itching ondansetron 2019-04 Yes 4mg 4 mg, Slow Univers (ZOFRAN 1-15 IV Push, ity of (PF)) 11:09: Q8HPRN, [place] injection 4 20 Starting Medi jason mg [place] Branch 02/20/20 at 0509, Until Discontinu ed, Routine, Nausea and Vomiting (N/V) docusate 2019-04 Yes 240mg 240 mg, Unive rs calcium 1-15 Oral, ity of (SURFAK) 11:09: QDAILYPRN, [place] capsule 240 20 Starting Medi jason mg [facility] 02/20/20 at 0509, Until Discontinu ed, Routine, Constipati on magnesium 2019-04 Yes 30mL 30 mL, Univer s hydroxide 1-15 Oral, ity of (MILK OF 11:09: QDAILYPRN, [place] MAGNESIA) 20 Starting Medica l 400 mg/5 mL [place] Branch suspension 02/20/20 30 mL at 0509, Until Discontinu ed, Routine, Constipati on benzocaine- 2019-04 Yes Topical, Un deep[place] menthol 1-15 PRN, ity of (DERMOPLAST 11:09: Starting [place] ) 20-0.5 % 20 [place] Medical topical 02/20/20 Branch spray at 0509, Until Discontinu ed, Routine, Perineum discomfort LR 1000 mL 2019-04 2020- No at 125 Univ ers + oxytocin 1-15 11-15 mL/hr, IV ity of 20 units IV 07:30: 06:20 Infusion, [place] Solution 00 :00 ONCE, 1 Medical dose, [facility] 02/20/20 at 0130, Routine D5W-LR IV 2019-04- No 1000mL at 125 Uni vers infusion 1-14 11-15 mL/hr, IV ity o f 1,000 mL 16:30: 11:09 Infusion, [place] as 00 :24 CONTINUOUS Medical , Starting Branch 02/19/20 at 1030, Until 02/20/20 at 0509, Routine sodium 2019-04 2020- No 30mL 30 mL, Univers citrate-cit -14 11-15 Oral, ity of alis acid 16:14: 02:18 PRE-PROCED [place] (BICITRA) 34 :00 URE ONCE, Medic al 500-334 1 dose, Branch mg/5 mL Starting solution 30 Sat mL 02/19/20 at 1014, Until Discontinu ed, Routine, Surgery/Pr ocedure lactated 2019-04- No 500mL at 999 Unive rs ringers IV 1-14 11-15 mL/hr, 500 it y of infusion 16:14: 11:09 mL, IV [place] 500 mL 34 :24 Infusion, Medical PRN - SEE Branch INSTRUCTIO NS, Starting 02/19/20 at 1014, Until 02/20/20 at 0509, Routine ferrous 2020-0 Yes [id number] 325mg Take 1 Un deepak sulfate 325 8-31 tablet by ity of mg (65 mg 00:00: mouth 2 [place] iron) 00 (two) Medical tablet times Branch daily. ascorbic 2020-0 Yes [id number] 500mg Take 1 U nivers acid, 8-31 tablet by ity of vitamin C, 00:00: mouth 3 [place] 500 mg 00 (three) Medical tablet times Branch daily. ferrous 2020-0 Yes [id number] 325mg Take 1 Un deep[place] sulfate 325 8-31 tablet by ity of mg (65 mg 00:00: mouth 2 [place] iron) 00 (two) Medical tablet times Branch daily. ascorbic 2020-0 Yes [id number] 500mg Take 1 U nivers acid, 8-31 tablet by ity of vitamin C, 00:00: mouth 3 [place] 500 mg 00 (three) Medical tablet times Branch daily. ferrous 2020-0 Yes [id number] 325mg Take 1 Un deep[place] sulfate 325 8-31 tablet by ity of mg (65 mg 00:00: mouth 2 [place] iron) 00 (two) Medical tablet times Branch daily. ascorbic 2020-0 Yes [id number] 500mg Take 1 U nivers acid, 8-31 tablet by ity of vitamin C, 00:00: mouth 3 [place] 500 mg 00 (three) Medical tablet times Branch daily. ferrous 2020-0 Yes [id number] 325mg Take 1 Un deepak sulfate 325 8-31 tablet by ity of mg (65 mg 00:00: mouth 2 [place] iron) 00 (two) Medical tablet times Branch daily. ascorbic 2020-0 Yes [id number] 500mg Take 1 U nivers acid, 8-31 tablet by ity of vitamin C, 00:00: mouth 3 [place] 500 mg 00 (three) Medical tablet times Branch daily. ferrous 2020-0 Yes [id number] 325mg Take 1 Un deepak sulfate 325 8-31 tablet by ity of mg (65 mg 00:00: mouth 2 [place] iron) 00 (two) Medical tablet times Branch daily. ascorbic 2020-0 Yes [id number] 500mg Take 1 U nivers acid, 8-31 tablet by ity of vitamin C, 00:00: mouth 3 [place] 500 mg 00 (three) Medical tablet times Branch daily. ferrous 2020-0 Yes [id number] 325mg Take 1 Un deep[place] sulfate 325 8-31 tablet by ity of mg (65 mg 00:00: mouth 2 [place] iron) 00 (two) Medical tablet times Branch daily. ascorbic 2020-0 Yes [id number] 500mg Take 1 U nivers acid, 8-31 tablet by ity of vitamin C, 00:00: mouth 3 [place] 500 mg 00 (three) Medical tablet times Branch daily. ferrous 2020-0 Yes [id number] 325mg Take 1 Un deep[place] sulfate 325 8-31 tablet by ity of mg (65 mg 00:00: mouth 2 [place] iron) 00 (two) Medical tablet times Branch daily. ascorbic 2020-0 Yes [id number] 500mg Take 1 U nivers acid, 8-31 tablet by ity of vitamin C, 00:00: mouth 3 [place] 500 mg 00 (three) Medical tablet times Branch daily. ferrous 2020-0 Yes [id number] 325mg Take 1 Un deep[place] sulfate 325 8-31 tablet by ity of mg (65 mg 00:00: mouth 2 [place] iron) 00 (two) Medical tablet times Branch daily. ascorbic 2020-0 Yes [id number] 500mg Take 1 U nivers acid, 8-31 tablet by ity of vitamin C, 00:00: mouth 3 [place] 500 mg 00 (three) Medical tablet times Branch daily. ferrous 2020-0 Yes [id number] 325mg Take 1 Un deep[place] sulfate 325 8-31 tablet by ity of mg (65 mg 00:00: mouth 2 [place] iron) 00 (two) Medical tablet times Branch daily. ascorbic 2020-0 Yes [id number] 500mg Take 1 U nivers acid, 8-31 tablet by ity of vitamin C, 00:00: mouth 3 [place] 500 mg 00 (three) Medical tablet times Branch daily. ferrous 2020-0 Yes [id number] 325mg Take 1 Un deep[place] sulfate 325 8-31 tablet by ity of mg (65 mg 00:00: mouth 2 [place] iron) 00 (two) Medical tablet times Branch daily. ascorbic 2020-0 Yes [id number] 500mg Take 1 U nivers acid, 8-31 tablet by ity of vitamin C, 00:00: mouth 3 [place] 500 mg 00 (three) Medical tablet times Branch daily. ferrous 2020-0 Yes [id number] 325mg Take 1 Un deep[place] sulfate 325 8-31 tablet by ity of mg (65 mg 00:00: mouth 2 [place] iron) 00 (two) Medical tablet times Branch daily. ascorbic 2020-0 Yes [id number] 500mg Take 1 U nivers acid, 8-31 tablet by ity of vitamin C, 00:00: mouth 3 [place] 500 mg 00 (three) Medical tablet times Branch daily. ferrous 2020-0 Yes [id number] 325mg Take 1 Un deepak sulfate 325 8-31 tablet by ity of mg (65 mg 00:00: mouth 2 [place] iron) 00 (two) Medical tablet times Branch daily. ascorbic 2020-0 Yes [id number] 500mg Take 1 U nivers acid, 8-31 tablet by ity of vitamin C, 00:00: mouth 3 [place] 500 mg 00 (three) Medical tablet times Branch daily. ferrous 2020-0 Yes [id number] 325mg Take 1 Un deep[place] sulfate 325 8-31 tablet by ity of mg (65 mg 00:00: mouth 2 [place] iron) 00 (two) Medical tablet times Branch daily. ascorbic 2020-0 Yes [id number] 500mg Take 1 U nivers acid, 8-31 tablet by ity of vitamin C, 00:00: mouth 3 [place] 500 mg 00 (three) Medical tablet times Branch daily. ferrous 2020-0 Yes [id number] 325mg Take 1 Un deepak sulfate 325 8-31 tablet by ity of mg (65 mg 00:00: mouth 2 [place] iron) 00 (two) Medical tablet times Branch daily. ascorbic 2020-0 Yes [id number] 500mg Take 1 U nivers acid, 8-31 tablet by ity of vitamin C, 00:00: mouth 3 [place] 500 mg 00 (three) Medical tablet times Branch daily. ferrous 2020-0 Yes [id number] 325mg Take 1 Un edepak sulfate 325 8-31 tablet by ity of mg (65 mg 00:00: mouth 2 [place] iron) 00 (two) Medical tablet times Branch daily. ascorbic 2020-0 Yes [id number] 500mg Take 1 U nivers acid, 8-31 tablet by ity of vitamin C, 00:00: mouth 3 [place] 500 mg 00 (three) Medical tablet times Branch daily. ferrous 2020-0 Yes [id number] 325mg Take 1 Un deepak sulfate 325 8-31 tablet by ity of mg (65 mg 00:00: mouth 2 [place] iron) 00 (two) Medical tablet times Branch daily. ascorbic 2020-0 Yes [id number] 500mg Take 1 U nivers acid, 8-31 tablet by ity of vitamin C, 00:00: mouth 3 [place] 500 mg 00 (three) Medical tablet times Branch daily. ferrous 2020-0 Yes [id number] 325mg Take 1 Un deepak sulfate 325 8-31 tablet by ity of mg (65 mg 00:00: mouth 2 [place] iron) 00 (two) Medical tablet times Branch daily. ascorbic 2020-0 Yes [id number] 500mg Take 1 U nivers acid, 8-31 tablet by ity of vitamin C, 00:00: mouth 3 [place] 500 mg 00 (three) Medical tablet times Branch daily. ferrous 2020-0 Yes [id number] 325mg Take 1 Un deepak sulfate 325 8-31 tablet by ity of mg (65 mg 00:00: mouth 2 [place] iron) 00 (two) Medical tablet times Branch daily. ascorbic 2020-0 Yes [id number] 500mg Take 1 U nivers acid, 8-31 tablet by ity of vitamin C, 00:00: mouth 3 [place] 500 mg 00 (three) Medical tablet times Branch daily. ferrous 2020-0 Yes [id number] 325mg Take 1 Un deep[place] sulfate 325 8-31 tablet by ity of mg (65 mg 00:00: mouth 2 [place] iron) 00 (two) Medical tablet times Branch daily. ascorbic 2020-0 Yes [id number] 500mg Take 1 U nivers acid, 8-31 tablet by ity of vitamin C, 00:00: mouth 3 [place] 500 mg 00 (three) Medical tablet times Branch daily. ferrous 2020-0 Yes [id number] 325mg Take 1 Un deep[place] sulfate 325 8-31 tablet by ity of mg (65 mg 00:00: mouth 2 [place] iron) 00 (two) Medical tablet times Branch daily. ascorbic 2020-0 Yes [id number] 500mg Take 1 U nivers acid, 8-31 tablet by ity of vitamin C, 00:00: mouth 3 [place] 500 mg 00 (three) Medical tablet times Branch daily. ferrous 2020-0 Yes [id number] 325mg Take 1 Un deepak sulfate 325 8-31 tablet by ity of mg (65 mg 00:00: mouth 2 [place] iron) 00 (two) Medical tablet times Branch daily. ascorbic 2020-0 Yes [id number] 500mg Take 1 U nivers acid, 8-31 tablet by ity of vitamin C, 00:00: mouth 3 [place] 500 mg 00 (three) Medical tablet times Branch daily. ferrous 2020-0 Yes [id number] 325mg Take 1 Un deep[place] sulfate 325 8-31 tablet by ity of mg (65 mg 00:00: mouth 2 [place] iron) 00 (two) Medical tablet times Branch daily. ascorbic 2020-0 Yes [id number] 500mg Take 1 U nivers acid, 8-31 tablet by ity of vitamin C, 00:00: mouth 3 [place] 500 mg 00 (three) Medical tablet times Branch daily. ferrous 2020-0 Yes [id number] 325mg Take 1 Un deepak sulfate 325 8-31 tablet by ity of mg (65 mg 00:00: mouth 2 [place] iron) 00 (two) Medical tablet times Branch daily. ascorbic 2020-0 Yes [id number] 500mg Take 1 U nivers acid, 8-31 tablet by ity of vitamin C, 00:00: mouth 3 [place] 500 mg 00 (three) Medical tablet times Branch daily. ferrous 2020-0 Yes [id number] 325mg Take 1 Un deepak sulfate 325 8-31 tablet by ity of mg (65 mg 00:00: mouth 2 [place] iron) 00 (two) Medical tablet times Branch daily. ascorbic 2020-0 Yes [id number] 500mg Take 1 U nivers acid, 8-31 tablet by ity of vitamin C, 00:00: mouth 3 [place] 500 mg 00 (three) Medical tablet times Branch daily. ferrous 2020-0 Yes [id number] 325mg Take 1 Un deep[place] sulfate 325 8-31 tablet by ity of mg (65 mg 00:00: mouth 2 [place] iron) 00 (two) Medical tablet times Branch daily. ascorbic 2020-0 Yes [id number] 500mg Take 1 U nivers acid, 8-31 tablet by ity of vitamin C, 00:00: mouth 3 [place] 500 mg 00 (three) Medical tablet times Branch daily. ferrous 2020-0 Yes [id number] 325mg Take 1 Un deepak sulfate 325 8-31 tablet by ity of mg (65 mg 00:00: mouth 2 [place] iron) 00 (two) Medical tablet times Branch daily. ascorbic 2020-0 Yes [id number] 500mg Take 1 U nivers acid, 8-31 tablet by ity of vitamin C, 00:00: mouth 3 [place] 500 mg 00 (three) Medical tablet times Branch daily. ferrous 2020-0 Yes [id number] 325mg Take 1 Un deepak sulfate 325 8-31 tablet by ity of mg (65 mg 00:00: mouth 2 [place] iron) 00 (two) Medical tablet times Branch daily. ascorbic 2020-0 Yes [id number] 500mg Take 1 U nivers acid, 8-31 tablet by [facility] vitamin C, 00:[place] 500 [place] 00 (three) Medical tablet times Branch daily. ferrous 2020-0 Yes [id number] 325mg Take 1 Un deepak sulfate 325 8-31 tablet by ity of mg (65 mg 00:00: mouth 2 [place] iron) 00 (two) Medical tablet times Branch daily. ascorbic 2020-0 Yes [id number] 500mg Take 1 U nivers acid, 8-31 tablet by [facility] of vitamin C, 00:00: mouth 3 [place] 500 mg 00 (three) Medical tablet times Branch daily. ferrous 2020-0 Yes [id number] 325mg Take 1 Un deep[place] sulfate 325 8-31 tablet by ity of mg (65 mg 00:00: mouth 2 [place] iron) 00 (two) Medical tablet times Branch daily. ascorbic 2020-0 Yes [id number] 500mg Take 1 U nivers acid, 8-31 tablet by [facility] of vitamin C, 00:00: mouth 3 [place] 500 mg 00 (three) Medical tablet times Branch daily. ferrous 2020-0 Yes [id number] 325mg Take 1 Un [place] sulfate 325 8-31 tablet by ity of mg (65 mg 00:00: mouth 2 [place] iron) 00 (two) Medical tablet times Branch daily. ascorbic 2020-0 Yes [id number] 500mg Take 1 U nivers acid, 8-31 tablet by [facility]y of vitamin C, 00:00: mouth [place] 500 mg 00 (three) Medical tablet times Branch daily. terazosin 2014-04 Yes 5mg Take 1 Cap [facility] (HYTRIN) 5 1-27 by mouth ity o f mg capsule 00:00: at [place] 00 bedtime. Medical Branch docusate 2014-04 Yes 100mg Take 1 Cap [facility] [place] (COLACE) 1-27 by mouth ity of 100 mg 00:00: every 12 [place] capsule 00 (twelve) Medical hours. Branch terazosin 2014-04 Yes 5mg Take 1 Cap [place] (HYTRIN) 5 1-27 by mouth ity o f mg capsule 00:00: at [place] 00 bedtime. Medical Branch docusate 2014-04 Yes 100mg Take 1 Cap Un [place] (COLACE) 1-27 by mouth ity of 100 mg 00:00: every 12 [place] capsule 00 (twelve) Medical hours. Branch terazosin 2014-04 Yes 5mg Take 1 Cap [place] (HYTRIN) 5 1-27 by mouth ity o f mg capsule 00:00: at [place] 00 bedtime. Medical Branch docusate 2014-04 Yes 100mg Take 1 Cap Un [place] (COLACE) 1-27 by mouth ity of 100 mg 00:00: every 12 [place] capsule 00 (twelve) Medical hours. Branch terazosin 2014-04 Yes 5mg Take 1 Cap [place] (HYTRIN) 5 1-27 by mouth ity o f mg capsule 00:00: at [place] 00 bedtime. Medical Branch docusate 2014-04 Yes 100mg Take 1 Cap Un [place] (COLACE) 1-27 by mouth ity of 100 mg 00:00: every 12 [place] capsule 00 (twelve) Medical hours. Branch terazosin 2014-04 Yes 5mg Take 1 Cap [facility] [place] (HYTRIN) 5 1-27 by mouth ity o f mg capsule 00:00: at [place] 00 bedtime. Medical Branch docusate 2014-04 Yes 100mg Take 1 Cap Un [place] (COLACE) 1-27 by mouth ity of 100 mg 00:00: every 12 [place] capsule 00 (twelve) Medical hours. Branch terazosin 2014-04 Yes 5mg Take 1 Cap [place] (HYTRIN) 5 1-27 by mouth ity o f mg capsule 00:00: at [place] 00 bedtime. Medical Branch docusate 2014-04 Yes 100mg Take 1 Cap Un [place] (COLACE) 1-27 by mouth ity of 100 mg 00:00: every 12 [place] capsule 00 (twelve) Medical hours. Branch terazosin 2014-04 Yes 5mg Take 1 Cap [place] (HYTRIN) 5 1-27 by mouth ity o f mg capsule 00:00: at [place] 00 bedtime. Medical Branch docusate 2014-04 Yes 100mg Take 1 Cap Un [place] (COLACE) 1-27 by mouth ity of 100 mg 00:00: every 12 [place] capsule 00 (twelve) Medical hours. Branch terazosin 2014-04 Yes 5mg Take 1 Cap [place] (HYTRIN) 5 1-27 by mouth ity o f mg capsule 00:00: at [place] 00 bedtime. Medical Branch docusate 2014-04 Yes 100mg Take 1 Cap Un [place] (COLACE) 1-27 by mouth ity of 100 mg 00:00: every 12 [place] capsule 00 (twelve) Medical hours. Branch terazosin 2014-04 Yes 5mg Take 1 Cap [place] (HYTRIN) 5 1-27 by mouth ity o f mg capsule 00:00: at [place] 00 bedtime. Medical Branch docusate 2014-04 Yes 100mg Take 1 Cap [facility] [place] (COLACE) 1-27 by mouth ity of 100 mg 00:00: every 12 [place] capsule 00 (twelve) Medical hours. Branch terazosin 2014-04 Yes 5mg Take 1 Cap [place] (HYTRIN) 5 1-27 by mouth ity o f mg capsule 00:00: at [place] 00 bedtime. Medical Branch docusate 2014-04 Yes 100mg Take 1 Cap Un [place] (COLACE) 1-27 by mouth ity of 100 mg 00:00: every 12 [place] capsule 00 (twelve) Medical hours. Branch terazosin 2014-04 Yes 5mg Take 1 Cap [place] (HYTRIN) 5 1-27 by mouth ity o f mg capsule 00:00: at [place] 00 bedtime. Medical Branch docusate 2014-04 Yes 100mg Take 1 Cap [place] (COLACE) 1-27 by mouth ity of 100 mg 00:00: every 12 [place] capsule 00 (twelve) Medical hours. Branch terazosin 2014-04 Yes 5mg Take 1 Cap [place] (HYTRIN) 5 1-27 by mouth ity o f mg capsule 00:00: at [place] 00 bedtime. Medical Branch docusate 2014-04 Yes 100mg Take 1 Cap Un [place] (COLACE) 1-27 by mouth ity of 100 mg 00:00: every 12 [place] capsule 00 (twelve) Medical hours. Branch terazosin 2014-04 Yes 5mg Take 1 Cap [place] (HYTRIN) 5 1-27 by mouth ity o f mg capsule 00:00: at [place] 00 bedtime. Medical Branch docusate 2014-04 Yes 100mg Take 1 Cap Un [place] (COLACE) 1-27 by mouth ity of 100 mg 00:00: every 12 [place] capsule 00 (twelve) Medical hours. Branch terazosin 2014-04 Yes 5mg Take 1 Cap [place] (HYTRIN) 5 1-27 by mouth ity o f mg capsule 00:00: at [place] 00 bedtime. Medical Branch docusate 2014-04 Yes 100mg Take 1 Cap Un [place] (COLACE) 1-27 by mouth ity of 100 mg 00:00: every 12 [place] capsule 00 (twelve) Medical hours. Branch terazosin 2014-04 Yes 5mg Take 1 Cap [place] (HYTRIN) 5 1-27 by mouth ity o f mg capsule 00:00: at [place] 00 bedtime. Medical Branch docusate 2014-04 Yes 100mg Take 1 Cap Un [place] (COLACE) 1-27 by mouth ity of 100 mg 00:00: every 12 [place] capsule 00 (twelve) Medical hours. Branch terazosin 2014-04 Yes 5mg Take 1 Cap [place] (HYTRIN) 5 1-27 by mouth ity o f mg capsule 00:00: at [place] 00 bedtime. Medical Branch docusate 2014-04 Yes 100mg Take 1 Cap Un [place] (COLACE) 1-27 by mouth ity of 100 mg 00:00: every 12 [place] capsule 00 (twelve) Medical hours. Branch terazosin 2014-04 Yes 5mg Take 1 Cap [place] (HYTRIN) 5 1-27 by mouth ity o f mg capsule 00:00: at [place] 00 bedtime. Medical Branch docusate 2014-04 Yes 100mg Take 1 Cap [place] (COLACE) 1-27 by mouth ity of 100 mg 00:00: every 12 [place] capsule 00 (twelve) Medical hours. Branch docusate 2014-04 Yes 100mg Take 1 Cap [place] (COLACE) 1-27 by mouth ity of 100 mg 00:00: every 12 [place] capsule 00 (twelve) Medical hours. Branch docusate 2014-04 Yes 100mg Take 1 Cap [place] (COLACE) 1-27 by mouth ity of 100 mg 00:00: every 12 [place] capsule 00 (twelve) Medical hours. Branch docusate 2014-04 Yes 100mg Take 1 Cap [place] (COLACE) 1-27 by mouth ity of 100 mg 00:00: every 12 [place] capsule 00 (twelve) Medical hours. Branch docusate 2014-04 Yes 100mg Take 1 Cap [place] (COLACE) 1-27 by mouth ity of 100 mg 00:00: every 12 [place] capsule 00 (twelve) Medical hours. Branch docusate 2014-04 Yes 100mg Take 1 Cap [place] (COLACE) 1-27 by mouth ity of 100 mg 00:00: every 12 [place] capsule 00 (twelve) Medical hours. Branch docusate 2014-04 Yes 100mg Take 1 Cap [place] (COLACE) 1-27 by mouth ity of 100 mg 00:00: every 12 [place] capsule 00 (twelve) Medical hours. Branch docusate 2014-04 Yes 100mg Take 1 Cap Un [place] (COLACE) 1-27 by mouth ity of 100 mg 00:00: every 12 [place] capsule 00 (twelve) Medical hours. Branch docusate 2014-04 Yes 100mg Take 1 Cap [place] (COLACE) 1-27 by mouth ity of 100 mg 00:00: every 12 [place] capsule 00 (twelve) Medical hours. Branch docusate 2014-04 Yes 100mg Take 1 Cap Un [place] (COLACE) 1-27 by mouth ity of 100 mg 00:00: every 12 [place] capsule 00 (twelve) Medical hours. Branch docusate 2014-04 Yes 100mg Take 1 Cap Un [place] (COLACE) 1-27 by mouth ity of 100 mg 00:00: every 12 [place] capsule 00 (twelve) Medical hours. Branch docusate 2014-04 Yes 100mg Take 1 Cap Un [place] (COLACE) 1-27 by mouth ity of 100 mg 00:00: every 12 [place] capsule 00 (twelve) Medical hours. Branch docusate 2014-04 Yes 100mg Take 1 Cap Un [place] (COLACE) 1-27 by mouth ity of 100 mg 00:00: every 12 [place] capsule 00 (twelve) Medical hours. Branch docusate 2014-04 Yes 100mg Take 1 Cap Un [place] (COLACE) 1-27 by mouth ity of 100 mg 00:00: every 12 [place] capsule 00 (twelve) Medical hours. Branch terazosin 2014-04 Yes 5mg Take 1 Cap [place] (HYTRIN) 5 1-27 by mouth ity o f mg capsule 00:00: at [place] 00 bedtime. Medical Branch docusate 2014-04 Yes 100mg Take 1 Cap Un [place] (COLACE) 1-27 by mouth ity of 100 mg 00:00: every 12 [place] capsule 00 (twelve) Medical hours. Branch docusate 2014-04 Yes 100mg Take 1 Cap [place] (COLACE) 1-27 by mouth ity of 100 mg 00:00: every 12 [place] capsule 00 (twelve) Medical hours. Branch docusate 2014-04 Yes 100mg Take 1 Cap [place] (COLACE) 1-27 by mouth ity of 100 mg 00:00: every 12 [place] capsule 00 (twelve) Medical hours. Branch docusate 2014-04 Yes 100mg Take 1 Cap Un [place] (COLACE) 1-27 by mouth ity of 100 mg 00:00: every 12 [place] capsule 00 (twelve) Medical hours. Branch docusate 2014-04 Yes 100mg Take 1 Cap Un [place] (COLACE) 1-27 by mouth ity of 100 mg 00:00: every 12 [place] capsule 00 (twelve) Medical hours. Branch terazosin 2014-04 Yes 5mg Take 1 Cap Un [place] (HYTRIN) 5 1-27 by mouth ity o f mg capsule 00:00: at [place] 00 bedtime. Medical Branch docusate 2014-04 Yes 100mg Take 1 Cap Un deep[place] (COLACE) 1-27 by mouth ity of 100 mg 00:00: every 12 [place] capsule 00 (twelve) Medical hours. Branch terazosin 2014-04 2020- No 5mg Take 1 Cap U nivers (HYTRIN) 5 1-27 11-16 by mouth ity of mg capsule 00:00: 00:00 at [place] 00 :00 bedtime. Medical Branch Immunizations Ordered Filled Immunization Date Status Comments [facility] e Immunization Name Name TDAP 2019-12-22 Completed [facility] of 00:00:00 [facility] Influenza Virus 2019-12-22 Completed Universit y of Vacc[facility] .5 mL 00:00:00 [place] [facility] IM 6+ MO Branch TDAP 2019-12-22 Completed [facility] of 00:00:00 [facility] Influenza Virus 2019-12-22 Completed Universit y of [facility] .5 mL 00:00:00 [place] [facility] IM 6+ MO Branch TDAP 2019-12-22 Completed [facility] of 00:00:00 [facility] Influenza Virus 2019-12-22 Completed Universit y of [facility] .5 mL 00:00:00 [place] [facility] IM 6+ MO Branch TDAP 2019-12-22 Completed [facility] of 00:00:00 [facility] Influenza Virus 2019-12-22 Completed Universit y of [facility] .5 mL 00:00:00 [place] [facility] IM 6+ MO Branch TDAP 2019-12-22 Completed [facility] of 00:00:00 [facility] Influenza Virus 2019-12-22 Completed Universit y of [facility] .5 mL 00:00:00 [place] [facility] 6+ MO Branch TDAP 2019-12-22 Completed [facility] of 00:00:00 [facility] Influenza Virus 2019-12-22 Completed Universit y of [facility] .5 mL 00:00:00 [place] [facility] 6+ MO Branch TDAP 2019-12-22 Completed [facility] of 00:00:00 [facility] Influenza Virus 2019-12-22 Completed Universit y of [facility] .5 mL 00:00:00 [place] [facility] 6+ MO Branch TDAP 2019-12-22 Completed [facility] of 00:00:00 [facility] Influenza Virus 2019-12-22 Completed Universit y of [facility] .5 mL 00:00:00 [place] [facility] 6+ MO Branch TDAP 2019-12-22 Completed [facility] of 00:00:00 [facility] Influenza Virus 2019-12-22 Completed Universit y of [facility] .5 mL 00:00:00 [place] [facility] 6+ MO Branch TDAP 2019-12-22 Completed [facility] of 00:00:00 [facility] Influenza Virus 2019-12-22 Completed Universit y of [facility] .5 mL 00:00:00 [place] [facility] 6+ MO Branch TDAP 2019-12-22 Completed [facility] of 00:00:00 [facility] Influenza Virus 2019-12-22 Completed Universit y of [facility] .5 mL 00:00:00 [place] [facility] 6+ MO Branch TDAP 2019-12-22 Completed [facility] of 00:00:00 [facility] Influenza Virus 2019-12-22 Completed Universit y of [facility] .5 mL 00:00:00 [place] [facility] 6+ MO Branch TDAP 2019-12-22 Completed [facility] of 00:00:00 [facility] Influenza Virus 2019-12-22 Completed Universit y of [facility] .5 mL 00:00:00 [place] [facility] 6+ MO Branch TDAP 2019-12-22 Completed [facility] of 00:00:00 [facility] Influenza Virus 2019-12-22 Completed Universit y of [facility] .5 mL 00:00:00 [place] [facility] 6+ MO Branch TDAP 2019-12-22 Completed University of 00:00:00 [facility] TDAP 2019-12-22 Completed [facility] of 00:00:00 [facility] Influenza Virus 2019-12-22 Completed Universit y of [facility] .5 mL 00:00:00 [place] [facility] 6+ MO Branch Influenza Virus 2019-12-22 Completed Universit y of [facility] .5 mL 00:00:00 [place] [facility] 6+ MO Branch TDAP 2019-12-22 Completed University of 00:00:00 [facility] Influenza Virus 2019-12-22 Completed Universit y of [facility] .5 mL 00:00:00 [facility] 6+ MO [place] TDAP 2019-12-22 Completed University of 00:00:00 [facility] Influenza Virus 2019-12-22 Completed Universit y of Vaccine [facility] .5 mL 00:00:00 [facility] 6+ MO [place] TDAP 2019-12-22 Completed University of 00:00:00 [facility] Influenza Virus 2019-12-22 Completed Universit y of Vacc[facility] .5 mL 00:00:00 [facility] 6+ MO Branch TDAP 2019-12-22 Completed University of 00:00:00 [facility] Influenza Virus 2019-12-22 Completed Universit y of Vacc[facility] .5 mL 00:00:00 [place] [facility] 6+ MO Branch TDAP 2019-12-22 Completed [facility] of 00:00:00 [facility] Influenza Virus 2019-12-22 Completed Universit y of Vaccine [facility] .5 mL 00:00:00 [place] [facility] 6+ MO Branch TDAP 2019-12-22 Completed [facility] of 00:00:00 [facility] Influenza Virus 2019-12-22 Completed Universit y of [facility] [place] .5 mL 00:00:00 [place] [facility] 6+ MO Branch TDAP 2019-12-22 Completed [facility] of 00:00:00 [facility] Influenza Virus 2019-12-22 Completed Universit y of [facility] .5 mL 00:00:00 [place] [facility] 6+ MO Branch TDAP 2019-12-22 Completed [facility] of 00:00:00 [facility] Influenza Virus 2019-12-22 Completed [facility] .5 mL [facility] TDAP 2019-12-22 Completed [facility] of 00:00:00 [facility] Influenza Virus 2019-12-22 Completed [facility] y [facility] .5 mL 00:00:[facility] 6[facility] TDAP 2019-12-22 Completed University 00:00:00 [facility] Influenza Virus 2019-12-22 Completed Universit y of [facility] .5 mL 00:00:[facility] 6+ [facility] Vital Signs Vital Name Observation Time Observation Value Comments Source Systolic blood 2021-09-21 17:35:00 106 mm[Hg] Univer sity of pressure [facility] Diastolic blood 2021-09-21 17:35:00 71 mm[Hg] Unive rsity of [facility] Heart rate 2021-09-21 17:35:00 84 /min [facility] ty [facility] Body temperature 2021-09-21 17:35:00 37.06 Ana [facility] Respiratory rate 2021-09-21 17:35:00 19 /min [facility] Body height 2021-09-21 17:35:00 162.6 cm [facility] Body weight 2021-09-21 17:35:00 113.671 kg [facility] BMI 2021-09-21 17:35:00 43.02 kg/m2 [facility] Oxygen saturation in 2021-09-21 17:35:00 96 /min [facility] Arterial blood by [facility] Pulse oximetry Branch Systolic blood 2021-09-12 21:37:00 116 mm[Hg] Univer sity of pressure [facility] Diastolic blood 2021-09-12 21:37:00 78 mm[Hg] Unive rsity of pressure [facility] Heart rate 2021-09-12 21:37:00 88 /min Universi ty [facility] Body temperature 2021-09-12 21:37:00 36.72 Ana [facility] 2021-09-12 21:37:00 16 /min [facility] Body height 2021-09-12 21:37:00 165.1 cm [facility] [place] [facility] Body weight 2021-09-12 21:37:00 112.946 kg Universi ty [facility] [place] [facility] BMI 2021-09-12 21:37:00 41.44 kg/m2 [facility] [place] [facility] Oxygen saturation in 2021-09-12 21:37:00 96 /min University of Arterial blood by [facility] Pulse oximetry Branch Systolic blood 2020-09-19 18:59:00 111 mm[Hg] Univer sity of pressure [place] [facility] Diastolic blood 2020-09-19 18:59:00 74 mm[Hg] Unive rsity of pressure [place] [facility] Heart rate 2020-09-19 18:59:00 98 /min [facility]i [facility] [place] [facility] Body temperature 2020-09-19 18:59:00 36.28 Ana Univ ersity of [place] [facility] Respiratory rate 2020-09-19 18:59:00 16 /min Univ ersity of [place] [facility] Body height 2020-09-19 18:59:00 165.1 cm [facility] [place] [facility] Body weight 2020-09-19 18:59:00 102.059 kg [facility] [place] [facility] BMI 2020-09-19 18:59:00 37.44 kg/m2 [facility] [place] [facility] Oxygen saturation in 2020-09-19 18:59:00 99 /min [facility] of Arterial blood by [facility] Pulse oximetry Branch Systolic blood 2020-05-03 17:15:00 103 mm[Hg] Univer sity of pressure [place] [facility] Diastolic blood 2020-05-03 17:15:00 69 mm[Hg] Unive rsity of pressure [place] [facility] Heart rate 2020-05-03 17:15:00 90 /min [facility]i ty [facility] [place] [facility] Body temperature 2020-05-03 17:15:00 36.61 Ana [facility] ersity of [place] [facility] Respiratory rate 2020-05-03 17:15:00 16 /min Univ ersity of [place] [facility] Body height 2020-05-03 17:15:00 167.6 cm [facility] [place] [facility] Body weight 2020-05-03 17:15:00 104.463 kg [facility] [place] [facility] BMI 2020-05-03 17:15:00 37.17 kg/m2 [facility] Systolic blood 2020-03-13 17:06:00 123 mm[Hg] [facility] Diastolic blood 2020-03-13 17:06:00 86 mm[Hg] [facility]ive [facility]ity [facility] Heart rate 2020-03-13 17:06:00 80 /min Universi ty of [facility] Body temperature 2020-03-13 17:06:00 36.17 Ana [facility] Respiratory rate 2020-03-13 17:06:00 16 /min Univ ersity [facility] Body height 2020-03-13 17:06:00 165.1 cm Universi ty of [facility] Body weight 2020-03-13 17:06:00 105.688 kg Universi ty of [facility] BMI 2020-03-13 17:06:00 38.77 kg/m2 Universi ty of [facility] Systolic blood 2020-02-21 17:41:00 129 mm[Hg] [facility]iver [facility]ity [facility] Diastolic blood 2020-02-21 17:41:00 78 mm[Hg] [facility]ive rsity [facility] Heart rate 2020-02-21 17:41:00 86 /min Universi ty of [facility] Body temperature 2020-02-21 17:41:00 36 Ana [facility] Respiratory rate 2020-02-21 17:41:00 17 /min Univ ersity of [facility] Oxygen saturation in 2020-02-21 17:41:00 96 /min University of Arterial blood by [facility] Pulse oximetry Branch Body weight 2020-02-19 16:13:00 118.389 kg [facility]i [facility] BMI 2020-02-19 16:13:00 43.43 kg/m2 Universi ty of [facility] Body height 2020-02-19 15:05:00 165.1 cm [facility] Systolic blood 2020-02-16 15:08:00 125 mm[Hg] Univer sity of pressure [facility] Diastolic blood 2020-02-16 15:08:00 87 mm[Hg] [facility]ive rsity [facility] Heart rate 2020-02-16 15:08:00 87 /min [facility]i [facility] [place] [facility] Body temperature 2020-02-16 15:08:00 36.28 Ana Univ ersity of [place] [facility] Respiratory rate 2020-02-16 15:08:00 16 /min Univ ersity of [place] [facility] Body height 2020-02-16 15:08:00 165.1 cm [facility] [place] [facility] Body weight 2020-02-16 15:08:00 118.956 kg [facility] [place] [facility] BMI 2020-02-16 15:08:00 43.64 kg/m2 [facility] [place] [facility] Systolic blood 2020-02-09 14:32:00 119 mm[Hg] Univer sity of pressure [place] [facility] Diastolic blood 2020-02-09 14:32:00 82 mm[Hg] Unive rsity of pressure [place] [facility] Heart rate 2020-02-09 14:32:00 96 /min Universi ty [facility] [place] [facility] Body temperature 2020-02-09 14:32:00 36.17 Ana [facility] Respiratory rate 2020-02-09 14:32:00 16 /min Univ ersity of [place] [facility] Body height 2020-02-09 14:32:00 165.1 cm [facility] [place] [facility] Body weight 2020-02-09 14:32:00 119.013 kg [facility] [place] [facility] BMI 2020-02-09 14:32:00 43.66 kg/m2 [facility] [place] [facility] Systolic blood 2020-02-02 18:25:00 137 mm[Hg] Univer sity of pressure [place] [facility] Diastolic blood 2020-02-02 18:25:00 87 mm[Hg] Unive rsity of pressure [place] [facility] Heart rate 2020-02-02 18:25:00 107 /min [facility]i [facility] [place] [facility] Body temperature 2020-02-02 18:25:00 36.11 Ana Univ ersity of [place] [facility] Respiratory rate 2020-02-02 18:25:00 16 /min Univ ersity of [place] [facility] Body height 2020-02-02 18:25:00 165.1 cm [facility] ty [facility] [place] [facility] Body weight 2020-02-02 18:25:00 117.226 kg [facility]i ty [facility] [place] [facility] BMI 2020-02-02 18:25:00 43.01 kg/m2 [facility] [place] [facility] Systolic blood 2020-01-27 21:17:00 119 mm[Hg] Univer sity of pressure [place] [facility] Diastolic blood 2020-01-27 21:17:00 76 mm[Hg] Unive rsity of pressure [place] [facility] Heart rate 2020-01-27 21:17:00 93 /min [facility]i ty [facility] [place] [facility] Body temperature 2020-01-27 21:17:00 36.39 Ana [facility] [place] [facility] Respiratory rate 2020-01-27 21:17:00 16 /min Univ ersity of [place] [facility] Body height 2020-01-27 21:17:00 165.1 cm [facility] [place] [facility] Body weight 2020-01-27 21:17:00 119.835 kg [facility] [place] [facility] BMI 2020-01-27 21:17:00 43.96 kg/m2 [facility] [place] [facility] Systolic blood 2020-01-10 17:53:00 115 mm[Hg] Univer sity of pressure [place] [facility] Diastolic blood 2020-01-10 17:53:00 75 mm[Hg] Unive rsity of pressure [place] [facility] Heart rate 2020-01-10 17:53:00 90 /min [facility] [place] [facility] Body temperature 2020-01-10 17:53:00 36.44 Ana [facility] ers[facility] [place] [facility] Respiratory rate 2020-01-10 17:53:00 16 /min Univ ersity of [place] [facility] Body height 2020-01-10 17:53:00 165.1 cm [facility] [place] [facility] Body weight 2020-01-10 17:53:00 114.987 kg [facility] [place] [facility] BMI 2020-01-10 17:53:00 42.18 kg/m2 [facility] [place] [facility] Systolic blood 2019-12-22 14:07:00 121 mm[Hg] Univer sity of pressure [place] [facility] Diastolic blood 2019-12-22 14:07:00 79 mm[Hg] Unive rsity of pressure [place] [facility] Heart rate 2019-12-22 14:07:00 93 /min [facility]i ty [facility] [place] [facility] Body temperature 2019-12-22 14:07:00 37.11 Ana [facility] [place] [facility] Respiratory rate 2019-12-22 14:07:00 16 /min Univ ersity of [place] [facility] Body height 2019-12-22 14:07:00 165.1 cm Universi ty [facility] Body weight 2019-12-22 14:07:00 116.983 kg Universi ty [facility] BMI 2019-12-22 14:07:00 42.92 kg/m2 Universi ty [facility] Systolic blood 2019-12-03 15:34:00 114 mm[Hg] Univer sity of pressure [facility] Diastolic blood 2019-12-03 15:34:00 70 mm[Hg] Unive rsity [facility] Heart rate 2019-12-03 15:34:00 90 /min Universi ty [facility] Body temperature 2019-12-03 15:34:00 36.39 Ana [facility] 2019-12-03 15:34:00 16 /min [facility] Body height 2019-12-03 15:34:00 165.1 cm Universi ty [facility] Body weight 2019-12-03 15:34:00 114.08 kg Universi ty [facility] BMI 2019-12-03 15:34:00 41.85 kg/m2 Universi [facility] Procedures Procedure Date / Time Performed Performing Clinician [facility] e ASSIGNMENT OF BENEFITS 2021-09-12 21:33:24 Doctor Unassigned, No [facility] DISCLOSURE AND 2020-05-03 06:01:00 Doctor Unassigned, No [facility] CONSENT, MEDICAL AND Name Medical Bra nc SURGICAL PROCEDURES POCT TEST 2020-05-03 00:00:00 [facility] WITH DIFF 2020-02-21 07:21:00 Alena Tillmandamaris [place] o [facility] VENOUS CORD GAS 2020-02-20 07:22:00 Yessenia Rocha [place] [facility] HEPATITIS B SURFACE 2020-02-19 16:39:00 Yessenia Rocha [facility] ANTIGEN [facility] HIV 1/2 AG-AB WITH 2020-02-19 16:39:00 [facility] REFLEX [facility] GALV ONLY - SYPHILIS 2020-02-19 16:39:00 [facility]IGM [facility] HB ABO GROUPING 2020-02-19 16:38:00 Yessenia Rocha [place] [facility] RHO (D) IMMUNE 2020-02-19 16:38:00 Meena Tillman [place] GLOBULIN [facility] COVID-19 (ID NOW RAPID 2020-02-19 15:00:00 Eula Johnson [facility] TESTING) Burt [facility] POCT URINALYSIS 2020-02-16 15:08:00 Devora Perry [facility] POCT URINALYSIS 2020-02-09 14:36:00 eDvora Perry [facility] POCT URINALYSIS 2020-02-02 18:28:00 Devora Perry [facility] POCT URINALYSIS 2020-01-27 21:33:00 Devora Perry [facility] POCT URINALYSIS 2020-01-10 17:54:00 Devora Perry [facility] FLU VACC ([id number]), 2019-12-22 14:36:30 Devora Perry [facility] 6+ MONTHS, IM, QUAD Medical Bran ch TDAP VACCINE, >11 YRS, 2019-12-22 14:25:25 Devora Perry [facility] POCT URINALYSIS 2019-12-22 00:00:00 Devora Perry [facility] SECOND AND THIRD 2019-12-10 20:27:00 Devora Perry [facility] TRIMESTER ULTRASOUND Medical Bra [facility] POCT URINALYSIS W/O 2019-12-03 15:36:00 Devora Perry Uni versity [facility] SPECIFIC GRAVITY [facility] POCT TEST 2019-12-03 15:36:00 Devora Perry Uni [facility] ASSIGNMENT OF BENEFITS 2019-12-03 14:38:42 Doctor Unassigned, No [facility] Encounters Start End Encounter Admission Attending Care Care Encounter Source Date/Time Date/Time Type Type Clinicians Facility Department ID 2021-02-03 Outpatient [facility] [id number] Univers 05:33:22 ity [facility] 2021-09-21 2021-09-21 Urgent Kristin Valladares [facility] [id number] Univers 12:40:00 13:00:00 Care Aren Harper [facility] 350.1.13.10 ity of [place] 4.2.7.2.686 Nathan as MOSES?BLEA [id number] [address] MEDICAL OFFICE [facility] 2021-09-21 2021-09-21 Outpatient R [facility] [id number] Univers 12:40:00 12:40:00 [id number] ity [facility] 2021-09-21 2021-09-21 [facility] [id number] Univers 12:40:00 12:40:00 [facility] 2021-09-13 2021-09-13 Letter SARAH Luevano 1.2.840.114 [id number] Univers 00:00:00 00:00:00 (Out) Amber HUAY 350.1.13.10 it y of [facility] 4.2.7.2.686 Nathan as [id number] [address] 2021-09-12 2021-09-12 [facility] [id number] Univers 16:40:00 17:01:37 KRISTIN ity [facility] 2021-09-12 2021-09-12 Urgent Blaine [facility] 1.2.840.114 [id number] Univers 16:40:00 17:00:00 Care Kristin HEALTH 350.1.13.10 it y of [place] 4.2.7.2.686 Nathan as MOSES?BLEA [phone] [address] MEDICAL OFFICE [facility] 2021-09-12 2021-09-12 Outpatient R [facility] [id number] Univers 16:40:00 16:40:00 [id number] ity [facility] 2021-09-12 2021-09-12 Aline SMITH 1.2.840.114 [id number] Univers 00:00:00 00:00:00 Only Unassigned, ARLYN 350.1.13.10 ity of [facility] 4.2.7.2.686 Ntahan as [phone] [address] 2021-09-08 2021-09-08 Outpatient R [facility] [id number] Univers 09:00:00 09:00:00 [id number] ity [facility] 2021-09-08 2021-09-08 Outpatient R JESSICA [facility] [id number] Univers 09:00:00 09:00:00 [facility] 2021-09-07 2021-09-07 Outpatient R [facility] [id number] Univers 14:00:00 14:00:00 [id number] y [facility] 2021-09-07 2021-09-07 [facility] [id number] Univers 14:00:00 14:00:00 [facility] 2021-09-06 2021-09-06 Outpatient R [facility] [id number] Univers 17:40:00 17:40:00 [id number] ity [facility] 2021-09-06 2021-09-06 [facility] [id number] Univers 17:40:00 17:40:00 KRISTIN [facility] 2021-04-11 2021-04-11 Outpatient R [facility] [id number] Univers 15:15:00 15:15:00 [id number] [facility] 2021-04-11 2021-04-11 [facility] [id number] Univers 15:15:00 15:15:00 HORACE [facility] 2021-04-11 2021-04-11 Laboratory Only, Adc Pob2 Test [facility] 1.2 .840.114 [id number] Univers 15:15:00 15:15:00 Only Horace Morales 350.1.13 .10 ity [facility] 4.2.7.2.686 [place] [phone] Mt dical [address] 2021-04-11 2021-04-11 [facility] [id number] Univers 11:15:00 11:15:00 HORACE ity [facility] 2021-04-11 2021-04-11 Telephone Marquita Braunh SARAH 1.2.840.114 [id number] Univers 00:00:00 00:00:00 ARLYN 350.1.13.10 it y of [facility] 4.2.7.2.686 Nathan as [phone] [address] 2020-12-22 2020-12-22 Letter BassemSARAH 1.2.840.114 [id number] Univers 00:00:00 00:00:00 (Out) Amber STODDARD 350.1.13.10 it y of [facility] 4.2.7.2.686 Nathan as [phone] [address] 2020-12-21 2020-12-21 Laboratory Only, Ang Db Test [facility] 1.2.8 40.114 [id number] Univers 09:58:37 10:13:37 Only Kristin Valladares [facility] 350.1.13.10 ity [facility] 4.2.7.2.686 Nathan as Moses?Blea [phone] [address] Medical Office Building 2020-12-21 2020-12-21 Outpatient [facility] [id number] -[id number] Univers 10:00:00 10:00:00 [id number] [facility] 2020-12-21 2020-12-21 [facility] [id number] Univers 10:00:00 10:00:00 KRISTIN [facility] 2020-12-20 2020-12-20 Outpatient R [facility] [id number] Univers 14:00:00 14:00:00 [id number] [facility] 2020-12-20 2020-12-20 Outpatient R WANDA [facility] [id number] Univers 14:00:00 14:00:00 ATTENDING [facility] 2020-10-25 2020-10-25 Telephone Hema [facility] [id number] Univers 00:00:00 00:00:00 [facility] 350.1.13.10 it y of [place] 4.2.7.2.686 Nathan as Professio [phone] Mt dical nal [address] 2020-09-19 2020-09-19 Urgent Provider, [facility] 1.2.840.114 [id number] Univers 13:54:02 14:14:02 Care Ivana Garrido [facility] 350.1.13.10 ity of [place] 4.2.7.2.686 Nathan as Professio [phone] Mt dical nal [address] 2020-09-19 2020-09-19 Outpatient R [facility] [id number] -[id number] Univers 14:00:00 14:00:00 [id number] ity of [facility] 2020-09-19 2020-09-19 Outpatient R HEMA [facility] [id number] Univers 14:00:00 14:00:00 [facility] 2020-06-26 2020-06-26 Patient Andrew [facility] 1.2.840.114 [id number] Univers 00:00:00 00:00:00 Outreach [facility] 350.1.13.10 i ty of [facility] 4.2.7.2.[place] [phone] [address] 2020-06-19 2020-06-19 Outpatient R AKINSIPE, [facility] [id number] Univers 15:00:00 15:00:00 DEVORA [id number] ity o [facility] 2020-06-19 2020-06-19 Outpatient R AKINSIPE, [facility] [id number] Univers 15:00:00 15:00:00 DEVORA ity o [facility] 2020-06-14 2020-06-14 Outpatient R AKINSIPE, [facility] [id number] Univers 15:15:00 15:15:00 DEVORA [id number] ity o [facility] 2020-06-14 2020-06-14 Outpatient R AKINSIPE, [facility] [id number] Univers 15:15:00 15:15:00 DEVORA ity o [facility] 2020-05-16 2020-05-16 Outpatient R ANENE, [facility] [id number] Univers 15:00:00 15:00:00 IVANA lezama [facility] 2020-05-03 2020-05-03 Office Vicky, [facility] 1.2.767.019 [id number] Univers 11:00:17 12:05:41 Visit Devora Byrd OIL PIT ATTENDANT 350.1.13.10 ity [facility] 4.2.7.2.686 Nathan as MATERNAL [phone] [facility] CHILD [address] [place] [address] 2020-05-03 2020-05-03 Outpatient R AKINSIPE, [facility] [id number] Univers 10:45:00 10:45:00 DEVORA [id number] jaylay o [facility] 2020-05-03 2020-05-03 Outpatient R AKINSIPE, [facility] [id number] Univers 10:45:00 10:45:00 DEVORA lezama o [facility] 2020-05-03 2020-05-03 Orders Doctor SARAH 1.2.840.114 [id number] Univers 00:00:00 00:00:00 Only Unassigned, ARLYN 350.1.13.10 it[facility] 4.2.7.2.686 Nathan as [phone] [address] 2020-04-18 2020-04-18 Outpatient R AKINSIPE, [facility] [id number] Univers 08:15:00 08:15:00 DEVORA [id number] jaylay o [facility] 2020-04-18 2020-04-18 Outpatient R AKINSIPE, [facility] [id number] Univers 08:15:00 08:15:00 DEVORA dickersony o [facility] 2020-04-10 2020-04-10 Outpatient R AKINSIPE, [facility] [id number] Univers 14:15:00 14:15:00 DEVORA [id number] ity o [facility] 2020-04-10 2020-04-10 Outpatient R AKINSIPE, [facility] [id number] Univers 14:15:00 14:15:00 DEVORA dickersony o [facility] 2020-03-13 2020-03-13 Routine Akinsipe, [facility] 1.2.384.920 [id number] Univers 10:58:42 11:29:46 Devora C OIL PIT ATTENDANT 350.1.13.10 ity of Visit REGIONAL 4.2.7.2.686 Nathan as MATERNAL [phone] [facility] & CHILD [address] [place] [address] 2020-03-13 2020-03-13 Outpatient R AKINSIPE, [facility] [id number] Univers 11:00:00 11:00:00 DEVORA ity o f [facility] 2020-02-19 2020-02-21 [facility] Eula SARAH 1.2.840.114 [id number] Univers 08:30:00 12:20:00 Encounter Rickey STODDARD 350.1.13.10 ity of [facility] 4.2.7.2.686 Nathan as [phone] [address] 2020-02-16 2020-02-16 Routine Akinsipe, [facility] 1.2.851.442 [id number] Univers 08:59:40 09:21:25 Devora C OIL PIT ATTENDANT 350.1.13.10 ity of Visit REGIONAL 4.2.7.2.686 Nathan as MATERNAL [id number] [facility] & [address] 2020-02-16 2020-02-16 Outpatient R AKINSIPE, [facility] [id number] Univers 09:00:00 09:00:00 DEVORA [id number] ity o f [facility] 2020-02-16 2020-02-16 Outpatient R AKINSIPE, [facility] [id number] Univers 09:00:00 09:00:00 DEVORA ity o [facility] 2020-02-09 2020-02-09 [facility] 1.2.886.981 [id number] Univers 08:22:29 08:57:09 Devora C OIL PIT ATTENDANT 350.1.13.10 ity of Visit REGIONAL 4.2.7.2.686 Nathan as MATERNAL [phone] [facility] & CHILD [address] [place] [address] 2020-02-09 2020-02-09 Outpatient R AKINSIPE, [facility] [id number] Univers 08:30:00 08:30:00 DEVORA ity o f [facility] 2020-02-09 2020-02-09 Outpatient R AKINSIPE, [facility] [id number] Univers 08:30:00 08:30:00 DEVORA ity o f [facility] 2020-02-02 2020-02-02 Routine Akinsipe, [facility] [id number] Univers 12:56:05 15:37:31 Devora C OIL PIT ATTENDANT 350.1.13.10 ity of Visit REGIONAL 4.2.7.2.686 Nathan as MATERNAL [phone] [facility] & [address] 2020-02-02 2020-02-02 Outpatient R AKINSIPE, [facility] [id number] Univers 13:00:00 13:00:00 DEVORA [id number] ity o f [facility] 2020-02-02 2020-02-02 Outpatient R AKINSIPE, [facility] [id number] Univers 13:00:00 13:00:00 DEVORA ity o f [facility] 2020-01-27 2020-01-27 Routine Akinsipe, [facility] 1.2.905.687 [id number] Univers 15:52:49 16:30:38 Devora C OIL PIT ATTENDANT 350.1.13.10 ity of Visit REGIONAL 4.2.7.2.686 Nathan as MATERNAL [phone] [facility] & [address] 2020-01-27 2020-01-27 Outpatient R AKINSIPE, [facility] [id number] Univers 16:00:00 16:00:00 DEVORA [id number] ity o f [facility] 2020-01-27 2020-01-27 Outpatient R AKINSIPE, [facility] [id number] Univers 16:00:00 16:00:00 DEVORA ity o f [facility] 2020-01-24 2020-01-24 Outpatient R AKINSIPE, [facility] [id number]-[id number] Univers 15:30:00 15:30:00 DEVORA [id number] ity o f [facility] 2020-01-24 2020-01-24 Outpatient R AKINSIPE, [facility] [id number] Univers 15:30:00 15:30:00 DEVORA ity o f [facility] 2020-01-10 2020-01-10 Social Work Program Coordinator 5, [facility] Room UNIVERSIT 1 .2.840.114 [id number] Univers 14:41:51 15:31:30 Visit Devora Perry [facility] 350.1.13 .10 ity of Romain Barnhart [facility] 4.2.7.2.686 [place] [id number] [address] 2020-01-10 2020-01-10 Routine Josephpe, [facility] 1.2.780.367 [id number] Univers 12:44:29 13:23:54 Devora Byrd OIL PIT ATTENDANT 350.1.13.10 ity of Visit [facility] 4.2.7.2.686 Nathan as MATERNAL [phone] Med ical & CHILD [address] [place] [address] 2020-01-10 2020-01-10 Outpatient R AKINSIPE, [facility] [id number]-20 Univers 12:45:00 12:45:00 DEVORA ity o [facility] 2020-01-10 2020-01-10 Outpatient R AKINSIPE, [facility] [id number] Univers 12:45:00 12:45:00 DEVORA dickersony o [facility] 2020-01-07 2020-01-07 Outpatient R [facility] [id number] Univers 15:00:00 15:00:00 ity [facility] 2020-01-07 2020-01-07 Outpatient P [facility] [id number] Univers 15:00:00 15:00:00 ity [facility] 2020-01-05 2020-01-05 Outpatient R AKINSIPE, [facility] [id number] Univers 09:30:00 09:30:00 DEVORA ity o f [facility] 2020-01-05 2020-01-05 Outpatient R AKINSIPE, [facility] [id number] Univers 09:30:00 09:30:00 DEVORA ity o [facility] 2019-12-22 2019-12-22 Outpatient R AKINSIPE, [facility] [id number]-[id number] Univers 16:00:00 16:00:00 DEVORA [id number] ity o [facility] 2019-12-22 2019-12-22 Outpatient R AKINSIPE, [facility] [id number] Univers 16:00:00 16:00:00 DEVORA ity o [facility] 2019-12-22 2019-12-22 Routine Akinsipe, [facility] 1.2.366.104 [id number] Univers 08:55:15 09:41:02 Devora Byrd OIL PIT ATTENDANT 350.1.13.10 ity of Visit REGIONAL 4.2.7.2.686 Nathan as MATERNAL [phone] Med ical & CHILD [address] [place] [address] 2019-12-22 2019-12-22 Outpatient R JOSEPHPE, [facility] [id number] Univers 09:15:00 09:15:00 DEVORA itkim o [facility] 2019-12-17 2019-12-17 Outpatient R AKINSIPE, [facility] [id number]-20 Univers 14:00:00 14:00:00 DEVORA [id number] ity o [facility] 2019-12-17 2019-12-17 Outpatient R AKINSIPE, [facility] [id number] Univers 14:00:00 14:00:00 DEVORA ity o [facility] 2019-12-14 2019-12-14 Outpatient R [facility] [id number] Univers 12:45:00 12:45:00 ity [facility] 2019-12-14 2019-12-14 Outpatient BARRON LINCOLN [facility] [id number] Univers 12:45:00 12:45:[facility] 2019-12-10 2019-12-10 Social Work Program Coordinator 1, [facility] Us Room UNIVERSIT 1 .2.840.114 [id number] Univers 14:08:36 15:55:09 Visit Lor Morales [facility] 350.1.13.10 ity of CL[place] 4[place]2.7.2.[place] [id number] [address] 2019-12-10 2019-12-10 Outpatient R [facility] [id number] Univers 14:15:00 14:15:00 [id number] ity of [facility] 2019-12-10 2019-12-10 Outpatient P [facility] [id number] Univers 14:15:00 14:15:00 ity of [facility] 2019-12-10 2019-12-10 Abstract Vicky [facility] 1.2.840.114 [id number] Univers 00:00:00 00:00:00 Devora C OIL PIT ATTENDANT 350.1.13.10 ity of REGIONAL 4.2.7.2.686 Nathan as MATERNAL [phone] [facility] ical & CHILD [address] [place] [address] 2019-12-06 2019-12-06 Outpatient R VICKY [facility] [id number] Univers 14:30:00 14:30:00 DEVORA lezama o f [facility] 2019-12-06 2019-12-06 Telephone [facility] 1.2.840.114 [id number] Univers 00:00:00 00:00:00 Devora C OIL PIT ATTENDANT 350.1.13.10 ity of REGIONAL 4.2.7.2.686 Nathan as MATERNAL [phone] [facility] & CHILD [address] [place] [address] 2019-12-03 2019-12-03 Initial [facility] 1.2.010.196 [id number] Univers 10:15:18 11:36:20 Devora C OIL PIT ATTENDANT 350.1.13.10 ity of Visit REGIONAL 4.2.7.2.686 Nathan as MATERNAL [id number] [facility] ical & CHILD [address] [place] [address] 2019-12-03 2019-12-03 Outpatient R VICKY [facility] [id number] Univers 10:00:00 10:00:00 DEVORA lezama o f [facility] 2019-12-03 2019-12-03 Orders Doctor SMITH 1.2.840.114 [id number] Univers 00:00:00 00:00:00 Only Unassigned, ARLYN 350.1.13.10 ity of [place] [facility] 4.2.7.2.686 Nathan as [phone] [address] 2019-08-20 2019-08-20 Emergency E [facility]ER[facility] [address] [facility] 14:18:00 16:36:00 ARIANA Results Test Description Test Time Test Comments Results Result Comments Source POCT TEST 2020-05-03 17:21:00 Test Item Value Reference Range Interpretation Comme nts POCT PREG (test code = 1605) Negative On board controls acceptable with C Line (test code = 3574) Yes POCT PREG LOT # (test code = 3575) POCT PREG TEST DATE (test code = 3576) [facility] [id number] 17:21:00 Test Item Value Reference Range Interpretation Comments POCT PREG (test code = 1605) Negative On board controls acceptable with C Yes Line (test code = 3574) POCT PREG LOT # (test code = 3575) POCT PREG TEST DATE (test code = 3576) [facility] with [id number] 08:05:00 Test Item Value Reference Range Interpretation Comments WBC (test code = See_Comment [Automated 6690-2) message] The sy stem which generated this result transmitted reference range : 4.30 - 11.10 10*3/?L. The reference range was not used to interpret this result as normal/abnormal . RBC (test code = See_Comment L [Automated 789-8) message] The sy stem which generated this result transmitted reference range : 3.93 - 5.25 10*6/?L. The reference range was not used to interpret this result as normal/abnormal . HGB (test code = 10.0 g/dL 11.6-15 L 718-7) HCT (test code = 30.6 % 35.7-45.2 L 4544-3) MCV (test code = 84.1 fL 80.6-95.5 787-2) MCH (test code = 27.5 pg 25.9-32.8 785-6) MCHC (test code = 32.7 g/dL 31.6-35.1 786-4) RDW-SD (test code = 58.3 fL 39-49.9 H 87634-9) RDW-CV (test code = 19.0 % 12-15.5 H 788-0) PLT (test code = See_Comment [Automated 737-3) message] The sy stem which generated this result transmitted reference range : 166 - 358 10*3/ ?L. The reference r kathryn was not used to interpret this result as normal/abnormal . MPV (test code = 10.4 fL 9.5-12.9 45244-2) NRBC/100 WBC (test See_Comment [Automat ed code = 7314933083) message] The system which generated this result transmitted reference range : 0.0 - 10.0 /100 WBCs. The refer ence range was not u sed to interpret th is result as normal/abnormal . NRBC x10^3 (test code <0.01 See_Comment [Auto mated = 1518754743) message] The s ystem which generated this result transmitted reference range : 10*3/?L. The reference range was not used to interpret this result as normal/abnormal . GRAN MAT (NEUT) % 71.3 % (test code = 770-8) IMM GRAN % (test code 0.90 % = 0404923083) LYMPH % (test code = 20.0 % 736-9) MONO % (test code = 5.5 % 5905-5) EOS % (test code = 2.1 % 713-8) BASO % (test code = 0.2 % 706-2) GRAN MAT x10^3(ANC) 7.55 10*3/uL 1.88-7.09 H (test code = 3628294839) IMM GRAN x10^3 (test 0.10 10*3/uL 0-0.06 H code = 6972071360) LYMPH x10^3 (test code 2.12 10*3/uL 1.32-3.29 = 731-0) MONO x10^3 (test code 0.58 10*3/uL 0.33-0.92 = 742-7) EOS x10^3 (test code = 0.22 10*3/uL 0.03-0.39 711-2) BASO x10^3 (test code <0.03 0.01-0.07 = 704-7) Lab Interpretation Abnormal (test code = 25162-0) [facility] SYPHILIS [id number] 15:59:00 Test Item Value Reference Range Interpretation Comments Syphilis IgG/IgM (test Non-reactive Non-reactive code = 14538-3) LYNN (test code = LYNN) Non-reactive - No serologic evidence of T. pallidum infection. Cannot exclude incubating or early syphilis. Submit a second specimen in 2-4 weeks if syphilis is clinically suspected. Equivocal - Further testing to follow. Reactive - Further testing to follow. Lab Interpretation (test Normal code = 72668-0) [facility] IMMUNE [id number] 11:18:54 Test Item Value Reference Range Interpretation Comments RHIG CANDIDATE? No- see comment Patient i s not a (test code = candidate for R hIg- 5055) Patient is Rh Positive.Perfor med at [facility] Laboratory Services - [facility] Blood [address] [place] [address]Cair Free: [phone] A No. [id number] [facility] CORD [id number] 07:38:00 Test Item Value Reference Range Interpretation Comments VENOUS BASE EXCESS, mEq/L CORD (test code = 3768045384) VENOUS PH, CORD (test 7.25-7.45 code = [id number]) VENOUS PC02, CORD See_Comment [Automate d message] The (test code = system which ge nerated [id number]) this result tra nsmitted reference range : 27 - 49 mmHg. The refer ence range was not used to interpret this result as normal/abnormal . VENOUS PO2, CORD (test See_Comment [Aut omated message] The code = [id number]) system [facility] generated this result tra nsmitted reference range : 17 - 41 mmHg. The refer ence range was not used to interpret this result as normal/abnormal . VENOUS BICARBONATE, See_Comment QUES [Au tomated message] CORD (test code = The system which generated [id number]) this result tra nsmitted reference range : 12 - 29 mEq/L. The refe rence range was not used to interpret this result as normal/abnormal . [facility] [id number] 07:37:00 Test Item Value Reference Range Interpretation Comments BASE EXCESS, CORD mEq/L QUES (test code = 3556063467) AC PH, CORD (BEAKER) 7.18-7.38 (test code = 9044541966) PC02, CORD (test code See_Comment [Auto mated message] The = [id number]) system which g enerated this result transmit juan luis reference range : 32 - 66 mmHg. The refer ence range was not used to interpret this result as normal/abnormal . PO2, CORD (test code See_Comment [Autom ated message] The = [id number]) system which g enerated this result transmit juan luis reference range : 10 - 30 mmHg. The refer ence range was not used to interpret this result as normal/abnormal . BICARBONATE, CORD See_Comment [Automate d message] The (test code = system which ge nerated this [id number]) result transmit juan luis reference range : 17 - 27 mEq/L. The refe rence range was not used to interpret this result as normal/abnormal . [facility] AG-AB WITH [id number] 18:23:00 Test Item Value Reference Range Interpretation Comments HIV Negative Negative Semi-quantitative (test code = 18176-3) LYNN (test code = Non-reactive for HIV-1 LYNN) antigen and HIV-1/HIV-2 antibodies. ?No laboratory evidence of HIV infection. ?Repeat in 2-4 weeks if acute HIV infection is suspected. [facility] Surface [id number] 18:14:00 Test Item Value Reference Range Interpretation Comments HBsAg Semi-Quantitative (test code = Negative Negative 5195-3) [facility]Type and Screen - ONCE [id number] 17:20:03 Test Item Value Reference Range Interpretation Comments ABO & RH (test code B POSITIVE Performe d at [facility] = 20) Laboratory Serv [facility] Blood [facility]3 [address] [facility] s [id number] Free: [phone] A No. [id number] IAT (test code = Negative Performed a t [facility] 1185) Laboratory Serv [facility] Blood [facility]3 [address] [facility] s [id number] Free: [phone] A No. [id number] [facility]COVID-19 (ID NOW RAPID TESTING)2020-02-19 15:48:00 Test Item Value Reference Range Interpretation Comments SARS-CoV-2 Rapid ID NOW Not Detected Not Detected (test code = 22345-9) LYNN (test code = LYNN) ID NOW COVID-19 Assay is an isothermal nucleic acid amplification test intended for the qualitative detection of nucleic acid from SARS-CoV-2 viral RNA in nasopharyngeal (FISHER REEF NET) specimens. It is used under Emergency Use Authorization (EUA) by FDA. The limit of detection (LOD) of the assay is 125 Genome Equivalents/mL. A positive result is indicative of the presence of SARS-CoV-2 RNA. ?Clinical correlation with patient history and other diagnostic information is necessary to determine patient infection status. A negative (Not Detected) result does not preclude SARS-CoV-2 infection. In patients with clinical symptoms and other tests that are consistent with SARS-CoV-2 infection, negative results should be treated as presumptive negative and a new specimen should be tested with alternative PCR molecular test. Invalid: Please collect a new specimen for repeat patient testing if clinically indicated. Lab Interpretation Normal (test code = 49113-6) [facility] W SPECIFIC [id number] 15:08:00 Test Item Value Reference Range Interpretation Comments POCT U SP GRAV (test code = 3255) . 1.005-1.025 POCT PH U (test code = 3254) . 5-8 POCT U LEUK EST (test code = 3263) . Negative - Negative POCT U NIT (test code = 3262) . Negative - Negative POCT U PROT (test code = 3259) Trace Negative - Negative POCT U GLU (test code = 3256) Neg Negative - Negative POCT U KETONE (test code = 3258) . Negative - Negative POCT U UROBILI (test code = 3260) . 0.2-1 POCT U BILI (test code = 3261) . Negative - Negative POCT U BLD (test code = 3257) . Negative - Negative POCT U COLOR (test code = 3266) POCT U APPEAR (test code = 3267) [facility] UR[facility] W SPECIFIC [id number] 14:36:00 Test Item Value Reference Range Interpretation Comments POCT U SP GRAV (test code = 3255) . 1.005-1.025 POCT PH U (test code = 3254) . 5-8 POCT U LEUK EST (test code = 3263) . Negative - Negative POCT U NIT (test code = 3262) . Negative - Negative POCT U PROT (test code = 3259) Trace Negative - Negative POCT U GLU (test code = 3256) Neg Negative - Negative POCT U KETONE (test code = 3258) . Negative - Negative POCT U UROBILI (test code = 3260) . 0.2-1 POCT U BILI (test code = 3261) . Negative - Negative POCT U BLD (test code = 3257) . Negative - Negative POCT U COLOR (test code = 3266) POCT U APPEAR (test code = 3267) [facility] URINALYSIS W SPECIFIC [id number] 18:28:00 Test Item Value Reference Range Interpretation Comments POCT U SP GRAV (test code = 3255) . 1.005-1.025 POCT PH U (test code = 3254) . 5-8 POCT U LEUK EST (test code = 3263) . Negative - Negative POCT U NIT (test code = 3262) . Negative - Negative POCT U PROT (test code = 3259) Trace Negative - Negative POCT U GLU (test code = 3256) Neg Negative - Negative POCT U KETONE (test code = 3258) . Negative - Negative POCT U UROBILI (test code = 3260) . 0.2-1 POCT U BILI (test code = 3261) . Negative - Negative POCT U BLD (test code = 3257) . Negative - Negative POCT U COLOR (test code = 3266) POCT U APPEAR (test code = 3267) [facility] URINALYSIS W SPECIFIC [id number] 18:28:00 Test Item Value Reference Range Interpretation Comments POCT U SP GRAV (test code = 3255) . 1.005-1.025 POCT PH U (test code = 3254) . 5-8 POCT U LEUK EST (test code = 3263) . Negative - Negative POCT U NIT (test code = 3262) . Negative - Negative POCT U PROT (test code = 3259) Trace Negative - Negative POCT U GLU (test code = 3256) Neg Negative - Negative POCT U KETONE (test code = 3258) . Negative - Negative POCT U UROBILI (test code = 3260) . 0.2-1 POCT U BILI (test code = 3261) . Negative - Negative POCT U BLD (test code = 3257) . Negative - Negative POCT U COLOR (test code = 3266) POCT U APPEAR (test code = 3267) [facility] URINALYSIS W SPECIFIC [id number] 21:33:00 Test Item Value Reference Range Interpretation Comments POCT U SP GRAV (test code = 3255) . 1.005-1.025 POCT PH U (test code = 3254) . 5-8 POCT U LEUK EST (test code = 3263) . Negative - Negative POCT U NIT (test code = 3262) . Negative - Negative POCT U PROT (test code = 3259) Trace Negative - Negative POCT U GLU (test code = 3256) Neg Negative - Negative POCT U KETONE (test code = 3258) . Negative - Negative POCT U UROBILI (test code = 3260) . 0.2-1 POCT U BILI (test code = 3261) . Negative - Negative POCT U BLD (test code = 3257) . Negative - Negative POCT U COLOR (test code = 3266) POCT U APPEAR (test code = 3267) [facility] URINALYSIS W SPECIFIC [id number] 21:33:00 Test Item Value Reference Range Interpretation Comments POCT U SP GRAV (test code = 3255) . 1.005-1.025 POCT PH U (test code = 3254) . 5-8 POCT U LEUK EST (test code = 3263) . Negative - Negative POCT U NIT (test code = 3262) . Negative - Negative POCT U PROT (test code = 3259) Trace Negative - Negative POCT U GLU (test code = 3256) Neg Negative - Negative POCT U KETONE (test code = 3258) . Negative - Negative POCT U UROBILI (test code = 3260) . 0.2-1 POCT U BILI (test code = 3261) . Negative - Negative POCT U BLD (test code = 3257) . Negative - Negative POCT U COLOR (test code = 3266) POCT U APPEAR (test code = 3267) [facility] URINALYSIS W SPECIFIC [id number] 17:54:00 Test Item Value Reference Range Interpretation Comments POCT U SP GRAV (test code = 3255) . 1.005-1.025 POCT PH U (test code = 3254) . 5-8 POCT U LEUK EST (test code = 3263) . Negative - Negative POCT U NIT (test code = 3262) . Negative - Negative POCT U PROT (test code = 3259) Neg Negative - Negative POCT U GLU (test code = 3256) Neg Negative - Negative POCT U KETONE (test code = 3258) . Negative - Negative POCT U UROBILI (test code = 3260) . 0.2-1 POCT U BILI (test code = 3261) . Negative - Negative POCT U BLD (test code = 3257) . Negative - Negative POCT U COLOR (test code = 3266) POCT U APPEAR (test code = 3267) [facility] URINALYSIS W SPECIFIC [id number] 14:08:00 Test Item Value Reference Range Interpretation Comments POCT U SP GRAV (test code = 3255) . 1.005-1.025 POCT PH U (test code = 3254) . 5-8 POCT U LEUK EST (test code = 3263) . Negative - Negative POCT U NIT (test code = 3262) . Negative - Negative POCT U PROT (test code = 3259) trace Negative - Negative POCT U GLU (test code = 3256) normal Negative - Negative POCT U KETONE (test code = 3258) . Negative - Negative POCT U UROBILI (test code = 3260) . 0.2-1 POCT U BILI (test code = 3261) . Negative - Negative POCT U BLD (test code = 3257) . Negative - Negative POCT U COLOR (test code = 3266) POCT U APPEAR (test code = 3267) [facility] [id number] 15:36:00 Test Item Value Reference Range Interpretation Comments POCT PREG (test code = 1605) Positive On board controls acceptable with C Yes Line (test code = 3571) POCT PREG LOT # (test code = 3575) POCT PREG TEST DATE (test code = 3576) [facility] UR[facility] W/O SPECIFIC [id number] 15:36:00 Test Item Value Reference Range Interpretation Comments POCT PH U (test code = 3254) 6 mg/dl 5-8 POCT U LEUK EST (test code = neg Negative - Negative 3263) POCT U NIT (test code = 3262) neg Negative - Negative POCT U PROT (test code = 3259) trace Negative - Negative POCT U GLU (test code = 3256) neg Negative - Negative POCT U KETONE (test code = 3258) trace Negative - Negative POCT U BLD (test code = 3257) neg Negative - Negative [facility] [id number] 15:36:00 Test Item Value Reference Range Interpretation Comments POCT PREG (test code = 1605) Positive On board controls acceptable with C Yes Line (test code = 3574) POCT PREG LOT # (test code = 3575) POCT PREG TEST DATE (test code = 357) [facility] URIN[facility] W/O SPECIFIC [id number] 15:36:00 Test Item Value Reference Range Interpretation Comments POCT PH U (test code = 3254) 6 mg/dl 5-8 POCT U LEUK EST (test code = neg Negative - Negative 3263) POCT U NIT (test code = 3262) neg Negative - Negative POCT U PROT (test code = 3259) trace Negative - Negative POCT U GLU (test code = 3256) neg Negative - Negative POCT U KETONE (test code = 3258) trace Negative - Negative POCT U BLD (test code = 3257) neg Negative - Negative [facility] [id number] 15:36:00 Test Item Value Reference Range Interpretation Comments POCT PREG (test code = 1605) Positive On board controls acceptable with C Yes Line (test code = 3574) POCT PREG LOT # (test code = 3575) POCT PREG TEST DATE (test code = 3576) [facility] URINALYSIS W/O SPECIFIC [id number] 15:36:00 Test Item Value Reference Range Interpretation Comments POCT PH U (test code = 3254) 6 mg/dl 5-8 POCT U LEUK EST (test code = neg Negative - Negative 3263) POCT U NIT (test code = 3262) neg Negative - Negative POCT U PROT (test code = 3259) trace Negative - Negative POCT U GLU (test code = 3256) neg Negative - Negative POCT U KETONE (test code = 3258) trace Negative - Negative POCT U BLD (test code = 3257) neg Negative - Negative [facility] [id number] 15:36:00 Test Item Value Reference Range Interpretation Comments POCT PREG (test code = 1605) Positive On board controls acceptable with C Yes Line (test code = 3574) POCT PREG LOT # (test code = 3575) POCT PREG TEST DATE (test code = 357) [facility] URIN[facility]YS[facility] W/O SPECIFIC [id number] 15:36:00 Test Item Value Reference Range Interpretation Comments POCT PH U (test code = 3254) 6 mg/dl 5-8 POCT U LEUK EST (test code = neg Negative - Negative 3263) POCT U NIT (test code = 3262) neg Negative - Negative POCT U PROT (test code = 3259) trace Negative - Negative POCT U GLU (test code = 3256) neg Negative - Negative POCT U KETONE (test code = 3258) trace Negative - Negative POCT U BLD (test code = 3257) neg Negative - Negative [facility] [id number] 15:36:00 Test Item Value Reference Range Interpretation Comments POCT PREG (test code = 1605) Positive On board controls acceptable with C Yes Line (test code = 3574) POCT PREG LOT # (test code = 3575) POCT PREG TEST DATE (test code = 357) [facility] URINALYSIS W/O SPECIFIC [id number] 15:36:00 Test Item Value Reference Range Interpretation Comments POCT PH U (test code = 3254) 6 mg/dl 5-8 POCT U LEUK EST (test code = neg Negative - Negative 3263) POCT U NIT (test code = 3262) neg Negative - Negative POCT U PROT (test code = 3259) trace Negative - Negative POCT U GLU (test code = 3256) neg Negative - Negative POCT U KETONE (test code = 3258) trace Negative - Negative POCT U BLD (test code = 3257) neg Negative - Negative [facility]
--- NOTE | 2021-11-28 07:20 | EDPHYS ---
Physician Documentation [facility] Name: Ivana Daniel Age: 36 yrs Sex: Female : 1985 Arrival Date: 11/28/2021 Time: 06:51 Bed 18 Private MD: ED Physician Blas Chan HPI: 11/28 07:19 This 36 yrs old Female presents to ER via Ambulatory with complaints of kdr Swollen Tonsils. 07:19 Patient states she has had a sore throat for the last 3 days.. Onset: The kdr symptoms/episode began/occurred acutely. Severity of symptoms: At their worst the symptoms were mild moderate just prior to arrival, in the emergency department the symptoms are unchanged. The patient has not experienced similar symptoms in the past. The patient has not recently seen a physician. 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 - Social history:: Smoking status: Reported history of juuling and/or vaping. ROS: 07:19 Constitutional: Negative for fever, chills, and weight loss, Eyes: Negative for injury, kdr pain, redness, and discharge, Neck: Negative for injury, pain, and swelling, Cardiovascular: Negative for chest pain, palpitations, and edema, Respiratory: Negative for shortness of breath, cough, wheezing, and pleuritic chest pain, Abdomen/GI: Negative for abdominal pain, nausea, vomiting, diarrhea, and constipation. 07:19 ENT: Positive for sore throat. Exam: 07:19 Constitutional: This is a well developed, well nourished patient who is awake, alert, kdr and in no acute distress. Head/Face: Normocephalic, atraumatic. Eyes: Pupils equal round and reactive to light, extra-ocular motions intact. Lids and lashes normal. Conjunctiva and sclera are non-icteric and not injected. Cornea within normal limits. Periorbital areas with no swelling, redness, or edema. Neck: Trachea midline, no thyromegaly or masses palpated, and no cervical lymphadenopathy. Supple, full range of motion without nuchal rigidity, or vertebral point tenderness. No Meningismus. Chest/axilla: Normal chest wall appearance and motion. Nontender with no deformity. No lesions are appreciated. Cardiovascular: Regular rate and rhythm with a normal S1 and S2. No gallops, murmurs, or rubs. Normal PMI, no JVD. No pulse deficits. Respiratory: Lungs have equal breath sounds bilaterally, clear to auscultation and percussion. No rales, rhonchi or wheezes noted. No increased work of breathing, no retractions or nasal flaring. Abdomen/GI: Soft, non-tender, with normal bowel sounds. No distension or tympany. No guarding or rebound. No evidence of tenderness throughout. Back: No spinal tenderness. No costovertebral tenderness. Full range of motion. Skin: Warm, dry with normal turgor. Normal color with no rashes, no lesions, and no evidence of cellulitis. MS/ Extremity: Pulses equal, no cyanosis. Neurovascular intact. Full, normal range of motion. Neuro: Awake and alert, GCS 15, oriented to person, place, time, and situation. Cranial nerves II-XII grossly intact. Motor strength 5/5 in all extremities. Sensory grossly intact. Cerebellar exam normal. Normal gait. Psych: Awake, alert, with orientation to person, place and time. Behavior, mood, and affect are within normal limits. Vital Signs: 06:53 Pulse 101; Resp 19; Temp 98.6(O); Pulse Ox 99% on R/A; Weight 113.4 kg; Height 5 ft. 5 kd3 in. (165.10 cm); Pain 10/10; 06:57 BP 131 / 79; kd3 09:36 BP 136 / 82; Pulse 95; Resp 18; Pulse Ox 99% ; jh5 06:53 Body Mass Index 41.60 (113.40 kg, 165.10 cm) kd3 MDM: 07:18 Patient medically screened. kdr 07:19 Data reviewed: vital signs, nurses notes, lab test result(s). Counseling: I had a kdr detailed discussion with the patient and/or guardian regarding: the historical points, exam findings, and any diagnostic results supporting the discharge/admit diagnosis, lab results, the need for outpatient follow up. 11/28 07:17 Order name: Strep; Complete Time: 08:39 kdr 11/28 07:17 Order name: Flu; Complete Time: 08:39 kdr 11/28 07:17 Order name: COVID-19 SARS RT PCR (Document "Date of Onset" if Symptomatic); Complete kdr Time: 09:38 11/28 08:35 Order name: Throat Culture EDMS Administered Medications: 08:08 Drug: Ibuprofen 800 mg Route: PO; ap3 09:43 Follow up: Response: No adverse reaction; Marked relief of symptoms jh5 Disposition Summary: 11/28/21 07:18 Discharge Ordered Location: Home kdr Problem: new kdr Symptoms: have improved kdr Condition: Stable kdr Diagnosis - Acute laryngopharyngitis kdr Followup: kdr - With: Private Physician - When: 2 - 3 days - Reason: If symptoms return, Further diagnostic work-up, Recheck today's complaints, Continuance of care, Re-evaluation by your physician Discharge Instructions: - Discharge Summary Sheet kdr - Laryngitis kdr - Pharyngitis kdr - Sore Throat kdr Forms: - Medication Reconciliation Form kdr - Thank You Letter kdr - Antibiotic Education kdr Prescriptions: - Tramadol 50 mg Oral Tablet - take 1 tablet by ORAL route every 8 hours as needed; 12 tablet; Refills: 0, kdr Product Selection Permitted Signatures: Dispatcher [employer] EDMS Blas Chan MD MD kdr Vidhi Nowak RN RN ap3 Odette Peña RN RN kd3 Madonna Botello RN jh5
--- NOTE | 2021-11-28 07:20 | ER ---
Nurse's Notes [facility] Name: Ivana Danile Age: 36 yrs Sex: Female : 1985 Arrival Date: 11/28/2021 Time: 06:51 Bed 18 Private MD: Diagnosis: Acute laryngopharyngitis Presentation: 11/28 06:53 Chief complaint: Patient states: for the past few nights I haven't been able to sleep kd3 because of my throat hurting. I can't even swallow water. The first night i started getting sick i was throwing up and i popped a blood vessel in my eye. The throat is the main thing that's bothering me. Coronavirus screen: Vaccine status: Patient reports being unvaccinated. Ebola Screen: No symptoms or risks identified at this time. Initial Sepsis Screen: Does the patient meet any 2 criteria? No. Patient's initial sepsis screen is negative. Does the patient have a suspected source of infection? No. Patient's initial sepsis screen is negative. Risk Assessment: Do you want to hurt yourself or someone else? Patient reports no desire to harm self or others. Onset of symptoms was November 28, 2021. 06:53 Method Of Arrival: Ambulatory kd3 06:53 Acuity: SREEKANTH 3 kd3 Triage Assessment: 06:56 General: Appears uncomfortable, Behavior is calm, cooperative. Pain: Complains of pain kd3 in throat. 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 - Social history:: Smoking status: Reported history of juuling and/or vaping. Screenin:57 Abuse screen: Denies threats or abuse. Denies injuries from another. Nutritional kd3 screening: No deficits noted. Tuberculosis screening: No symptoms or risk factors identified. Fall Risk None identified. Vital Signs: 06:53 Pulse 101; Resp 19; Temp 98.6(O); Pulse Ox 99% on R/A; Weight 113.4 kg; Height 5 ft. 5 kd3 in. (165.10 cm); Pain 10/10; 06:57 BP 131 / 79; kd3 09:36 BP 136 / 82; Pulse 95; Resp 18; Pulse Ox 99% ; jh5 06:53 Body Mass Index 41.60 (113.40 kg, 165.10 cm) kd3 ED Course: 06:51 Patient arrived in ED. bp1 06:56 Triage completed. kd3 06:56 Arm band placed on right wrist. kd3 06:57 Patient has correct armband on for positive identification. kd3 07:04 Blas Chan MD is Attending Physician. kdr 07:43 Vidhi Nowak, RN is Primary Nurse. ap3 08:00 Flu Sent. ap3 08:00 Strep Sent. ap3 09:42 No provider procedures requiring assistance completed. Patient did not have IV access jh5 during this emergency room visit. Administered Medications: 08:08 Drug: Ibuprofen 800 mg Route: PO; ap3 09:43 Follow up: Response: No adverse reaction; Marked relief of symptoms 5 Medication: 09:43 VIS not applicable for this client. 5 Outcome: 07:18 Discharge ordered by . kdr 09:42 Discharged to home ambulatory. 5 09:42 Condition: good 09:42 Discharge instructions given to patient, Instructed on discharge instructions, follow up and referral plans. safety practices, Demonstrated understanding of instructions, follow-up care, medications, Prescriptions given X 1. 09:44 Patient left the ED. 5 Signatures: Blas Chan MD MD kdr Vidhi Nowak, RN RN 3 Destiny Guzman bp1 Madonna Botello RN RN 5 Odette Peña, RN RN 3
[2021-11-28] MEDS ORDERED: IBUPROFEN 400 MG TAB ONE (08:15)
[2021-11-28 10:15] VITALS: TEMP 98.6; O2SAT 99
[2021-11-28 10:19] VITALS: BP 136/82
== END 2021-11-28 09:44 | disposition home or self-care (01) ==
LOC: ER 06:39
DX: J06.0 Acute laryngopharyngitis (principal); Z20.822 Contact with and (suspected) exposure to COVID-19; Z87.442 Personal history of urinary calculi
CPT/HCPCS: 87070; 87081; 87804 ×2; U0003